=== PATIENT | female | born 1995 | race Caucasian/White ===

== ENCOUNTER 2017-01-12 01:04 | Inpatient (IN) | payer BC ==
[~2017-01-12] VITALS: Ht 157.5 cm; Wt 103.6 kg
[~2017-01-12 01:04] MED LIST: ALBU1AER9 INH; FLUO10CA24 PO; ONDA4TAB46 PO; PRT/40 PO; SENN-65 PO
[2017-01-12] MEDS ORDERED: SODIUM CHLORIDE 0.9% 1000ML 1,000 ML IV STA ×2 (01:28)
[2017-01-12] MEDS ORDERED: MoRPHine SULFATE 4 MG/ML 1 ML CARP\\VIAL IV STA (01:28)
[2017-01-12] MEDS ORDERED: ONDANSETRON INJ 2 MG/ML 2 ML VIAL IV STA (01:28)
[2017-01-12 01:46] LABS: HEMATOCRIT 42.8 % (37-47); MEAN CELL VOLUME 80.9 fL (80-100); MEAN CORPUSCULAR HGB CONC 34.6 g/dl (32-36); MEAN PLATELET VOLUME 9.6 fL (7.4-10.4); PLATELET COUNT 409 K/uL (130-400); RED BLOOD COUNT 5.29 M/uL (4.2-5.4); WHITE BLOOD COUNT 11.68 K/uL (4.8-10.8)
[2017-01-12] MEDS ORDERED: CHOL1000 PO (01:48)
[2017-01-12] MEDS ORDERED: ADVIN25/60 INH (01:48)
[2017-01-12 01:57] LABS: ALT/SGPT 28 U/L (12-78); AST/SGOT 8 U/L (15-37); BLOOD UREA NITROGEN 14 mg/dl (7-18); BUN/CREATININE RATIO 15.3 (10-20); CARBON DIOXIDE 25 mmol/L (21-32); CHLORIDE 108 mmol/L (98-107); CREATININE 0.93 mg/dl (0.60-1.20); GLUCOSE 103 mg/dl (70-99); POTASSIUM 3.8 mmol/L (3.5-5.1); SODIUM 143 mmol/L (136-145)
[2017-01-12 02:00] LABS: ALKALINE PHOSPHATASE 71 U/L (45-117)
[2017-01-12] MEDS ORDERED: HYDROmorphone INJ 1 MG/ML SYR IV STA (02:09)
[2017-01-12 02:19] LABS: BASO ABS # 0.11 K/uL (0-0.2); BASOPHIL % 0.9 %; COMPLETE YES; EOSINOPHIL % 1.8 %; LYMPH ABS # 1.95 K/uL (1.2-3.4); LYMPHOCYTE % 16.7 %; NEUTROPHILS % 61.3 %; VARIANT LYM ABS # 1.85 K/uL; VARIANT LYMPHOCYTE % 15.8 %
[2017-01-12 02:38] LABS: URINE APPEARANCE CLEAR (CLEAR); URINE BILIRUBIN NEG (NEG); URINE COLOR YELLOW; URINE EPITHELIAL CELL AUTO >30 /lpf (0-5); URINE NITRITE NEG (NEG); UROBILINOGEN NEG (NEG); ZZUR CULT IF INDIC CLEAN CATCH YES
[2017-01-12 02:40] LABS: PREG INTERNAL NEGATIVE QC NEG CLEAR BACKGROUND; PREG INTERNAL POSITIVE QC POS CONTROL LINE
[2017-01-12 02:47] LABS: MANUAL MICROSCOPIC REQUIRED? NO; REVIEW REQ? NO
[2017-01-12] MEDS ORDERED: CEFOXITIN SOD 2 GM VIAL IV STA (03:42)
--- NOTE | 2017-01-12 03:52 | EMERGENCY ROOM VISIT NOTE ---
History First contact with patient: 01:13 Chief Complaint: ABDOMINAL PAIN Stated Complaint: ABD PAIN Nursing Triage Summary: Patient reports right sided abdominal pain that began yesterday morning and got worse tonight. Patient also has been vomiting. Denies diarrhea. History of Present Illness The patient is a 21 year old female who presents to the Emergency Room with complaints of right upper abdominal pain for the past day described as aching, ranging in severity currently 8 out of 10. Nothing makes it better or worse. Patient has been vomiting. Patient denies chest pain, dyspnea, fever, chills, diarrhea, back pain. Review of Systems See HPI for pertinent positives & negatives. A total of 10 systems reviewed and were otherwise negative. Past Medical/Surgical History Medical Problems: (1) Headache Surgical Problems: (1) H/O adenoidectomy (2) [place] teeth extracted Family History Not obtainable due to adoption Social History Smoking Status: Never Smoker Alcohol Use: none Drug Use: none Marital Status: single Housing Status: lives with family Occupation Status: employed Current/Historical Medications Scheduled Cholecalciferol (Vitamin D3), Unknown Dose PO DAILY Fluticasone Prop/Salmeterol (Advair Diskus 250/50 60 Dose), 1 PUFF INH BID Pantoprazole (Pantoprazole Sodium), 40 MG PO DAILY Scheduled PRN Albuterol Sulfate (Proair Hfa), 2 PUFF INH Q4 PRN for SOB/Wheezing Allergies Coded Allergies: Clavulanic Acid (Unverified Allergy, Mild, Mild vomiting & NO RASH., ) Penicillins (Unverified Allergy, Mild, VOMITING, 08/20/15) Physical Exam Vital Signs Date Time Temp Pulse Resp B/P Pulse Ox O2 Delivery O2 Flow Rate FiO2 01/12/17 01:34 97 Room Air 01/12/17 01:09 37.0 84 22 141/87 99 Room Air Physical Exam VITALS: Vitals are noted on the nurse's note and reviewed by myself. Vital signs stable. GENERAL: White female in obvious pain, in no acute distress, nondiaphoretic, well-developed well-nourished. SKIN: The skin was without rashes, erythema, edema, or bruising. There is no tenting of the skin. Capillary reflex less than 2 seconds. HEAD: Normocephalic atraumatic. EARS: External auditory canals clear, tympanic membranes pearly [place]bot without erythema or effusion bilaterally. EYES: Pupils equal round and reactive to light and accommodation. Conjunctivae without injection, sclerae without icterus. Extraocular movements intact. NOSE: Patent, turbinates without inflammation or discharge. MOUTH: Mucous membranes moist. Pharynx without erythema or exudate. Uvula midline. Airway patent. Tongue does not deviate. NECK: Supple without nuchal rigidity. No lymphadenopathy. No thyromegaly. Cervical spine is nontender. No JVD. HEART: Regular rate and rhythm without murmurs gallops or rubs. LUNGS: Clear to auscultation bilaterally without wheezes, rales or rhonchi. No dullness to percussion. No retractions or accessory muscle use. ABDOMEN: Positive bowel sounds x 4. Normal tympanic percussion. Soft, protuberant, obese, tender to palpation right upper quadrant, no CVA tenderness , without masses or organomegaly. No guarding or rebound tenderness. MUSCULOSKELETAL: No muscle atrophy, erythema, or edema noted. NEURO: Patient was alert and oriented to person place and time. Normal sensation to light and sharp touch. No focal neurological deficits. Medical Decision & Procedures Laboratory Results 01/12/17 01:24 Red Blood Count 5.29, Mean Corpuscular Volume 80.9, Mean Corpuscular Hemoglobin 28.0, Mean Corpuscular Hemoglobin Concent 34.6, Mean Platelet Volume 9.6 01/12/17 01:24 Test 01/12/17 01:24 01/12/17 02:16 White Blood Count 11.68 K/uL (4.8-10.8) Red Blood Count 5.29 M/uL (4.2-5.4) Hemoglobin 14.8 g/dL (12.0-16.0) Hematocrit 42.8 % (37-47) Mean Corpuscular Volume 80.9 fL (80-100) Mean Corpuscular Hemoglobin 28.0 pg (25-34) Mean Corpuscular Hemoglobin Concent 34.6 g/dl (32-36) Platelet Count 409 K/uL (130-400) Mean Platelet Volume 9.6 fL (7.4-10.4) RDW Standard Deviation 37.3 fL (36.4-46.3) RDW Coefficient of Variation 12.7 % (11.5-14.5) Neutrophils % (Manual) 61.3 % Lymphocytes % (Manual) 16.7 % Variant Lymphocytes % (manual) 15.8 % Monocytes % (Manual) 3.5 % Eosinophils % (Manual) 1.8 % Basophils % (Manual) 0.9 % Neutrophils # (Manual) 7.16 K/uL (1.4-6.5) Total Absolute Neutrophils 7.16 K/uL (1.4-6.5) Lymphocytes # (Manual) 1.95 K/uL (1.2-3.4) Absolute Variant Lymphocytes 1.85 K/uL Total Absolute Lymphocytes 3.80 K/uL (1.2-3.4) Monocytes # (Manual) 0.41 K/uL (0.11-0.59) Eosinophils # (Manual) 0.21 K/uL (0-0.5) Basophils # (Manual) 0.11 K/uL (0-0.2) Anion Gap 10.0 mmol/L (3-11) Est Creatinine Clear Calc Drug Dose 107.1 ml/min Estimated GFR () 101.1 Estimated GFR (Non- 87.2 BUN/Creatinine Ratio 15.3 (10-20) Calcium Level 9.0 mg/dl (8.5-10.1) Total Bilirubin 0.2 mg/dl (0.2-1) Direct Bilirubin < 0.1 mg/dl (0-0.2) Aspartate Amino Transf (AST/SGOT) 8 U/L (15-37) Alanine Aminotransferase (ALT/SGPT) 28 U/L (12-78) Alkaline Phosphatase 71 U/L (45-117) Total Protein 8.3 gm/dl (6.4-8.2) Albumin 4.1 gm/dl (3.4-5.0) Lipase 193 U/L (73-393) Human Chorionic Gonadotropin, Qual NEG (NEG) Urine Color YELLOW Urine Appearance CLEAR (CLEAR) Urine pH 7.0 (4.5-7.5) Urine Specific [place] 1.020 (1.000-1.030) Urine Protein NEG (NEG) Urine Glucose (UA) NEG (NEG) Urine Ketones NEG (NEG) Urine Occult Blood 1+ (NEG) Urine Nitrite NEG (NEG) Urine Bilirubin NEG (NEG) Urine Urobilinogen NEG (NEG) Urine Leukocyte Esterase NEG (NEG) Urine WBC (Auto) 1-5 /hpf (0-5) Urine RBC (Auto) 0-4 /hpf (0-4) Urine Hyaline Casts (Auto) 0 /lpf (0-5) Urine Epithelial Cells (Auto) >30 /lpf (0-5) Urine Bacteria (Auto) 1+ (NEG) Medications Administered Medications (Trade) Dose Ordered Sig/Saud Route Start Time Stop Time Status Last Admin Dose Admin Morphine Sulfate (MoRPHine SULFATE INJ) 4 mg NOW STAT IV 01/12/17 01:28 01/12/17 01:32 DC 01/12/17 01:45 4 MG Ondansetron HCl 4 mg 4 mg NOW STAT IV 01/12/17 01:28 01/12/17 01:32 DC 01/12/17 01:46 4 MG Sodium Chloride 1,000 ml @ 999 mls/hr Q1H1M STAT IV 01/12/17 01:28 01/12/17 02:28 DC 01/12/17 01:46 999 MLS/HR Sodium Chloride (Nss 1000ml) 1,000 ml @ 200 mls/hr Q5H STAT IV 01/12/17 01:28 01/12/17 06:27 01/12/17 02:14 200 MLS/HR Hydromorphone HCl (Dilaudid Inj) 1 mg NOW STAT IV 01/12/17 02:09 01/12/17 02:10 DC 01/12/17 02:14 1 MG ED Course Prior records/ancillary studies reviewed. Triage Nursing notes reviewed. Additional history obtained from family. The patient's history was concerning for abdominal pain. Differential diagnosis: Etiologies such as appendicitis, diverticulitis, PUD, biliary pathology, UTI, pancreatitis, obstruction, mesenteric ischemia, aortic pathology, infections, inflammatory bowel disease, renal colic, as well as others were entertained. Physical examination findings: As above. ER treatment provided: Morphine, Zofran, Mefoxin On reassessment the patient felt better. Diagnostics interpreted by me: The labs revealed leukocytosis. No worrisome electrolyte abnormality Imaging studies: Ultrasound was concerning for acute cholecystitis per stat radiology Consultation: A consultation was placed with the surgeon, Dr. Vickers. The case was discussed and diagnostics were reviewed. The patient was evaluated in the ER for further treatment. Exam and history seem consistent with acute cholecystitis. Patient was admitted to surgical service. She was started on antibiotics. Please see his dictation for further admission regarding his treatment plan. By the evaluation outlined above emergent etiologies such as appendicitis, diverticulitis, PUD, UTI, pancreatitis, obstruction, mesenteric ischemia, aortic pathology, inflammatory bowel disease, renal colic, as well as others were deemed relatively unlikely. The pt informed about the findings as listed above. All questions were answered and pleased with the treatment. Case reviewed with my attending Medical Decision As above Impression Primary Impression: Acute cholecystitis Departure Information Dispostion Being Evaluated By Surgeon Condition FAIR Referrals Sharon Cooper DO (PCP) Patient Instructions My [facility]
[2017-01-12] MEDS ORDERED: METOCLOPRAMIDE HCL INJ 5 MG/ML 2 ML VIAL IV STA (04:01)
[2017-01-12] MEDS ORDERED: DiphenhydrAMINE HCL 50 MG/ML VIAL IV STA (04:01)
--- NOTE | 2017-01-12 04:40 | History and Physical ---
History & Physical Date & Time of Service: Jan 12, 2017 at 04:31 Chief Complaint: Abd Pain Primary Care Physician: Sharon Cooper DO History of Present Illness Source: patient, parent he patient is a 21 year old female who presents to the Emergency Room with complaints of right upper abdominal pain for the past day described as aching, ranging in severity currently 8 out of 10. Nothing makes it better or worse. Patient has been vomiting. Patient denies chest pain, dyspnea, fever, chills, diarrhea, back pain.now pt is still have RUQ pain, 8/10. Past Medical/Surgical History Medical Problems: (1) Headache Status: Chronic Surgical Problems: (1) H/O adenoidectomy Status: Resolved (2) [place] teeth extracted Status: Resolved Family History Not obtainable due to adoption Social History Smoking Status: Never Smoker Alcohol Use: none Drug Use: none Marital Status: single Housing status: lives with family Occupational Status: employed Multi-Drug Resistant Organisms History of MDRO: No Allergies Coded Allergies: Clavulanic Acid (Unverified Allergy, Mild, Mild vomiting & NO RASH., ) Penicillins (Unverified Allergy, Mild, VOMITING, 08/20/15) Home Medications Scheduled Cholecalciferol (Vitamin D3), Unknown Dose PO DAILY Fluticasone Prop/Salmeterol (Advair Diskus 250/50 60 Dose), 1 PUFF INH BID Pantoprazole (Pantoprazole Sodium), 40 MG PO DAILY Scheduled PRN Albuterol Sulfate (Proair Hfa), 2 PUFF INH Q4 PRN for SOB/Wheezing Review of Systems Constitutional: No chills, No fatigue, No fever, No problem reported, No sweats , No weakness, No weight loss Eyes: No diplopia, No discharge, No eye pain, No problem reported, No redness, No worsening of vision ENT: No dental problems, No hearing loss, No nasal symptoms, No problem reported, No sore throat, No tinnitus, No trouble swallowing, No unusual epistaxis Respiratory: No cough, No dyspnea at rest, No dyspnea on exertion, No hemoptysis, No problem reported, No shortness of breath, No sputum, No wheezing Cardiovascular: No PND, No chest pain, No claudication, No edema, No orthopnea , No palpitations, No problem reported Abdomen: + nausea, + pain, + vomiting Musculoskeletal: No calf pain, No joint pain, No muscle pain, No problem reported, No swelling Genitourinary - Female: No dysmenorrhea, No dysuria, No hematuria, No menorrhagia, No metrorrhagia, No , No problem reported, No rash, No urinary frequency, No urinary incontinence, No urinary retention, No urinary urgency, No vaginal bleeding, No vaginal discharge, No vaginal itching, No vulvodynia Neurologic: No balance problems, No memory loss, No numbness/tingling, No paralysis, No problem reported, No vertigo, No weakness Psychiatric: No anhedonism, No anxiety, No depression symptoms, No insomnia, No problem reported, No substance abuse Endocrine: No excessive thirst, No excessive urination, No fatigue, No problem reported Hematologic / Lymphatic: No abnormal bleeding/bruising, No clotting problems, No night sweats, No problem reported, No swollen lymph nodes Physical Exam Vital Signs Date Time Temp Pulse Resp B/P Pulse Ox O2 Delivery O2 Flow Rate FiO2 01/12/17 01:34 97 Room Air 01/12/17 01:09 37.0 84 22 141/87 99 Room Air General Appearance: WD/WN, + mild distress Head: normocephalic, atraumatic Eyes: normal inspection ENT: normal ENT inspection Neck: supple, no JVD Respiratory/Chest: chest non-tender, lungs clear Cardiovascular: regular rate, rhythm, no edema, no JVD Abdomen/GI: normal bowel sounds, non tender, soft, + tenderness Extremities/Musculoskelatal: normal inspection, no calf tenderness, normal capillary refill 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, no motor/sensory deficits Skin: normal color, warm/dry, no rash Lymphatic: no adenopathy tenderness at RUQ, no rebound pain, Diagnostics Laboratory Results Results Past 24 Hours Test 01/12/17 01:24 01/12/17 02:16 Range/Units White Blood Count 11.68 4.8-10.8 K/uL Red Blood Count 5.29 4.2-5.4 M/uL Hemoglobin 14.8 12.0-16.0 g/dL Hematocrit 42.8 37-47 % Mean Corpuscular Volume 80.9 80-100 fL Mean Corpuscular Hemoglobin 28.0 25-34 pg Mean Corpuscular Hemoglobin Concent 34.6 32-36 g/dl Platelet Count 409 130-400 K/uL Mean Platelet Volume 9.6 7.4-10.4 fL RDW Standard Deviation 37.3 36.4-46.3 fL RDW Coefficient of Variation 12.7 11.5-14.5 % Neutrophils % (Manual) 61.3 % Lymphocytes % (Manual) 16.7 % Variant Lymphocytes % (manual) 15.8 % Monocytes % (Manual) 3.5 % Eosinophils % (Manual) 1.8 % Basophils % (Manual) 0.9 % Neutrophils # (Manual) 7.16 1.4-6.5 K/uL Total Absolute Neutrophils 7.16 1.4-6.5 K/uL Lymphocytes # (Manual) 1.95 1.2-3.4 K/uL Absolute Variant Lymphocytes 1.85 K/uL Total Absolute Lymphocytes 3.80 1.2-3.4 K/uL Monocytes # (Manual) 0.41 0.11-0.59 K/uL Eosinophils # (Manual) 0.21 0-0.5 K/uL Basophils # (Manual) 0.11 0-0.2 K/uL Sodium Level 143 136-145 mmol/L Potassium Level 3.8 3.5-5.1 mmol/L Chloride Level 108 98-107 mmol/L Carbon Dioxide Level 25 21-32 mmol/L Anion Gap 10.0 3-11 mmol/L Blood Urea Nitrogen 14 7-18 mg/dl Creatinine 0.93 0.60-1.20 mg/dl Est Creatinine Clear Calc Drug Dose 107.1 ml/min Estimated GFR () 101.1 Estimated GFR (Non- 87.2 BUN/Creatinine Ratio 15.3 10-20 Random Glucose 103 70-99 mg/dl Calcium Level 9.0 8.5-10.1 mg/dl Total Bilirubin 0.2 0.2-1 mg/dl Direct Bilirubin < 0.1 0-0.2 mg/dl Aspartate Amino Transf (AST/SGOT) 8 15-37 U/L Alanine Aminotransferase (ALT/SGPT) 28 12-78 U/L Alkaline Phosphatase 71 45-117 U/L Total Protein 8.3 6.4-8.2 gm/dl Albumin 4.1 3.4-5.0 gm/dl Lipase 193 73-393 U/L Human Chorionic Gonadotropin, Qual NEG NEG Urine Color YELLOW Urine Appearance CLEAR CLEAR Urine pH 7.0 4.5-7.5 Urine Specific [place] 1.020 1.000-1.030 Urine Protein NEG NEG Urine Glucose (UA) NEG NEG Urine Ketones NEG NEG Urine Occult Blood 1+ NEG Urine Nitrite NEG NEG Urine Bilirubin NEG NEG Urine Urobilinogen NEG NEG Urine Leukocyte Esterase NEG NEG Urine WBC (Auto) 1-5 0-5 /hpf Urine RBC (Auto) 0-4 0-4 /hpf Urine Hyaline Casts (Auto) 0 0-5 /lpf Urine Epithelial Cells (Auto) >30 0-5 /lpf Urine Bacteria (Auto) 1+ NEG Microbiology Results 01/12/17 Urine Culture, Received Pending Diagnostic Radiology U/S acute cholecystitis, cholelithiasis Impression Assessment and Plan IMP acute cholecystitis cholelithiasis plan: admit to hospital IV fluid, antibiotic, control pain, pt will have laparoscopic cholecystectomy, possible open or cholangiography on Sunday or Sunday, D/W benefits, risks and alternatives of the procedure, pt understood, she agrees with the plan. ASA Classification: ASA Class I Level of Care Med/Surg VTE Prophylaxis Risk Level: Low Given or contraindicated: SCD's Note Total Time: Critical Care 30 - 74 minutes
[2017-01-12] MEDS ORDERED: METRONIDAZOLE / NSS 500 MG in PREMIXED NSS 0 ML IV SCH (06:00)
[2017-01-12 06:32] VITALS: BP 136/87; PULSE 68; TEMP 36.5; O2SAT 96; Ht 157.5 cm; Wt 103.6 kg
[2017-01-12 07:30] VITALS: O2SAT 96
--- NOTE | 2017-01-12 07:45 | DIAGNOSTIC IMAGING REPORT ---
ABDOMINAL ULTRASOUND, RIGHT UPPER QUADRANT HISTORY: Right upper quadrant abdominal pain.. COMPARISON: CT of the abdomen and pelvis November 08, 2014 and right upper quadrant ultrasound August 20, 2015. FINDINGS: Liver morphology is normal. There is no biliary ductal dilatation. Several gallstones are noted, including stones within the gallbladder neck. A sonographic Christianson sign was reported by the technologist. There was no gallbladder wall thickening or pericholecystic fluid. Gallbladder sludge was noted. Pancreas was obscured by overlying bowel gas. There was no right hydronephrosis. IMPRESSION: 1. Cholelithiasis and gallbladder sludge. No gallbladder wall thickening or pericholecystic fluid. Positive sonographic Christianson's sign. The findings could be seen in the setting of acute cholecystitis and a hepatobiliary scan could be obtained. 2. No biliary ductal dilatation. 3. Obscured pancreas. Electronically signed by: Javan Avery M.D. 01/12/2017 7:44 AM Dictated Date/Time: 01/12/2017 7:41 AM
[2017-01-12] MEDS: D5W AND 1/2NSS + 20MEQ KCL 1,000 ML IV SCH ×2 (08:12→17:26)
[2017-01-12] MEDS: METRONIDAZOLE / NSS 500 MG in PREMIXED NSS 100 ML IV SCH ×3 (08:21→23:29)
[2017-01-12] MEDS: ONDANSETRON INJ 2 MG/ML 2 ML VIAL IV PRN (08:35)
[2017-01-12] MEDS: CIPROFLOXACIN / D5W 400 MG in PREMIXED IN D5W 200 ML IV SCH ×2 (09:52→20:42)
--- NOTE | 2017-01-12 11:35 | Surgery Progress Note ---
Surgery Progress Note Date of Service Jan 12, 2017. Subjective + feeling well pt feels better, some RUQ pain, no N/V. Objective Vital Signs: Date Time Temp Pulse Resp B/P Pulse Ox O2 Delivery O2 Flow Rate FiO2 01/12/17 07:30 96 Room Air 01/12/17 06:32 36.5 68 14 136/87 96 Room Air 01/12/17 06:19 70 20 147/68 92 01/12/17 04:54 82 20 130/90 97 Room Air 01/12/17 01:34 97 Room Air 01/12/17 01:09 37.0 84 22 141/87 99 Room Air General Appearance: WD/WN Head: normocephalic Neck: supple Respiratory/Chest: chest non-tender, lungs clear Cardiovascular: regular rate, rhythm, no edema, no gallop, no JVD Abdomen: normal bowel sounds, non distended, soft, + tenderness Extremities: normal range of motion, non-tender, normal inspection Laboratory Results: Results Past 24 Hours Test 01/12/17 01:24 01/12/17 02:16 Range/Units White Blood Count 11.68 4.8-10.8 K/uL Red Blood Count 5.29 4.2-5.4 M/uL Hemoglobin 14.8 12.0-16.0 g/dL Hematocrit 42.8 37-47 % Mean Corpuscular Volume 80.9 80-100 fL Mean Corpuscular Hemoglobin 28.0 25-34 pg Mean Corpuscular Hemoglobin Concent 34.6 32-36 g/dl Platelet Count 409 130-400 K/uL Mean Platelet Volume 9.6 7.4-10.4 fL RDW Standard Deviation 37.3 36.4-46.3 fL RDW Coefficient of Variation 12.7 11.5-14.5 % Neutrophils % (Manual) 61.3 % Lymphocytes % (Manual) 16.7 % Variant Lymphocytes % (manual) 15.8 % Monocytes % (Manual) 3.5 % Eosinophils % (Manual) 1.8 % Basophils % (Manual) 0.9 % Neutrophils # (Manual) 7.16 1.4-6.5 K/uL Total Absolute Neutrophils 7.16 1.4-6.5 K/uL Lymphocytes # (Manual) 1.95 1.2-3.4 K/uL Absolute Variant Lymphocytes 1.85 K/uL Total Absolute Lymphocytes 3.80 1.2-3.4 K/uL Monocytes # (Manual) 0.41 0.11-0.59 K/uL Eosinophils # (Manual) 0.21 0-0.5 K/uL Basophils # (Manual) 0.11 0-0.2 K/uL Sodium Level 143 136-145 mmol/L Potassium Level 3.8 3.5-5.1 mmol/L Chloride Level 108 98-107 mmol/L Carbon Dioxide Level 25 21-32 mmol/L Anion Gap 10.0 3-11 mmol/L Blood Urea Nitrogen 14 7-18 mg/dl Creatinine 0.93 0.60-1.20 mg/dl Est Creatinine Clear Calc Drug Dose 107.1 ml/min Estimated GFR () 101.1 Estimated GFR (Non- 87.2 BUN/Creatinine Ratio 15.3 10-20 Random Glucose 103 70-99 mg/dl Calcium Level 9.0 8.5-10.1 mg/dl Total Bilirubin 0.2 0.2-1 mg/dl Direct Bilirubin < 0.1 0-0.2 mg/dl Aspartate Amino Transf (AST/SGOT) 8 15-37 U/L Alanine Aminotransferase (ALT/SGPT) 28 12-78 U/L Alkaline Phosphatase 71 45-117 U/L Total Protein 8.3 6.4-8.2 gm/dl Albumin 4.1 3.4-5.0 gm/dl Lipase 193 73-393 U/L Human Chorionic Gonadotropin, Qual NEG NEG Urine Color YELLOW Urine Appearance CLEAR CLEAR Urine pH 7.0 4.5-7.5 Urine Specific [place] 1.020 1.000-1.030 Urine Protein NEG NEG Urine Glucose (UA) NEG NEG Urine Ketones NEG NEG Urine Occult Blood 1+ NEG Urine Nitrite NEG NEG Urine Bilirubin NEG NEG Urine Urobilinogen NEG NEG Urine Leukocyte Esterase NEG NEG Urine WBC (Auto) 1-5 0-5 /hpf Urine RBC (Auto) 0-4 0-4 /hpf Urine Hyaline Casts (Auto) 0 0-5 /lpf Urine Epithelial Cells (Auto) >30 0-5 /lpf Urine Bacteria (Auto) 1+ NEG Microbiology Results 01/12/17 Urine Culture, Received Pending Assessment & Plan IMP acute cholecystitis, cholelithiasis continue treatment OOB repeat labs in am contracts representative surgeon will 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 full liquids
[2017-01-12 15:15] VITALS: BP 121/79; PULSE 72; TEMP 36.6; O2SAT 96
[2017-01-12] MEDS: HYDROmorphone INJ 1 MG/ML SYR IV PRN (20:39)
[2017-01-12] MEDS: DOCUSATE SODIUM 100 MG CAP PO SCH (20:41)
[2017-01-12 23:19] VITALS: BP 124/82; PULSE 82; TEMP 36.7; O2SAT 98
[2017-01-12] MEDS: OXYCODONE/ACETAMINOPHEN 5-325 TAB PO PRN (23:35)
[2017-01-13] MEDS: D5W AND 1/2NSS + 20MEQ KCL 1,000 ML IV SCH ×3 (03:58→23:44)
[2017-01-13] MEDS: ONDANSETRON INJ 2 MG/ML 2 ML VIAL IV PRN ×4 (04:03→23:44)
[2017-01-13] MEDS: HYDROmorphone INJ 1 MG/ML SYR IV PRN ×4 (04:04→23:45)
[2017-01-13 07:20] VITALS: BP 120/82; PULSE 61; TEMP 36.4; O2SAT 96
[2017-01-13 07:21] LABS: BASO % 0.5 %; BASO ABS # 0.03 K/uL (0-0.2); COMPLETE YES; EOS % 2.9 %; HEMATOCRIT 39.7 % (37-47); IG% 0.2 %; LYMPH % 49.6 %; LYMPH ABS # 3.23 K/uL (1.2-3.4); MEAN CELL VOLUME 82.5 fL (80-100); MEAN CORPUSCULAR HEMOGLOBIN 28.1 pg (25-34); MEAN PLATELET VOLUME 9.3 fL (7.4-10.4); MONO % 7.1 %; NEUT % 39.7 %; PLATELET COUNT 330 K/uL (130-400); RED BLOOD COUNT 4.81 M/uL (4.2-5.4); WHITE BLOOD COUNT 6.51 K/uL (4.8-10.8)
[2017-01-13 08:08] LABS: ALB/GLOB RATIO 0.9 (0.9-2); BUN/CREATININE RATIO 10.1 (10-20); CALCIUM 8.1 mg/dl (8.5-10.1); CREATININE 0.82 mg/dl (0.60-1.20); POTASSIUM 3.8 mmol/L (3.5-5.1)
[2017-01-13] MEDS: DOCUSATE SODIUM 100 MG CAP PO SCH ×2 (08:08→20:59)
[2017-01-13] MEDS: CIPROFLOXACIN / D5W 400 MG in PREMIXED IN D5W 200 ML IV SCH ×2 (09:00→21:00)
--- NOTE | 2017-01-13 10:34 | Surgery Progress Note ---
Surgery Progress Note Date of Service Jan 13, 2017. Subjective still having some pain but overall improved. no new complaints. Objective Vital Signs: Date Time Temp Pulse Resp B/P Pulse Ox O2 Delivery O2 Flow Rate FiO2 01/13/17 08:10 Room Air 01/13/17 07:20 36.4 61 17 120/82 96 Room Air 01/12/17 23:19 36.7 82 16 124/82 98 Room Air 01/12/17 20:35 Room Air 01/12/17 15:15 36.6 72 16 121/79 96 Room Air General Appearance: no apparent distress Head: normocephalic Neck: supple Respiratory/Chest: chest non-tender, no accessory muscle use Cardiovascular: no edema Abdomen: soft, + tenderness Extremities: normal range of motion, non-tender Laboratory Results: Results Past 24 Hours Test 01/13/17 06:45 Range/Units White Blood Count 6.51 4.8-10.8 K/uL Red Blood Count 4.81 4.2-5.4 M/uL Hemoglobin 13.5 12.0-16.0 g/dL Hematocrit 39.7 37-47 % Mean Corpuscular Volume 82.5 80-100 fL Mean Corpuscular Hemoglobin 28.1 25-34 pg Mean Corpuscular Hemoglobin Concent 34.0 32-36 g/dl Platelet Count 330 130-400 K/uL Mean Platelet Volume 9.3 7.4-10.4 fL Neutrophils (%) (Auto) 39.7 % Lymphocytes (%) (Auto) 49.6 % Monocytes (%) (Auto) 7.1 % Eosinophils (%) (Auto) 2.9 % Basophils (%) (Auto) 0.5 % Neutrophils # (Auto) 2.59 1.4-6.5 K/uL Lymphocytes # (Auto) 3.23 1.2-3.4 K/uL Monocytes # (Auto) 0.46 0.11-0.59 K/uL Eosinophils # (Auto) 0.19 0-0.5 K/uL Basophils # (Auto) 0.03 0-0.2 K/uL RDW Standard Deviation 38.7 36.4-46.3 fL RDW Coefficient of Variation 12.8 11.5-14.5 % Immature Granulocyte % (Auto) 0.2 % Immature Granulocyte # (Auto) 0.01 0.00-0.02 K/uL Sodium Level 141 136-145 mmol/L Potassium Level 3.8 3.5-5.1 mmol/L Chloride Level 106 98-107 mmol/L Carbon Dioxide Level 27 21-32 mmol/L Anion Gap 8.0 3-11 mmol/L Blood Urea Nitrogen 8 7-18 mg/dl Creatinine 0.82 0.60-1.20 mg/dl Est Creatinine Clear Calc Drug Dose 121.5 ml/min Estimated GFR () 117.7 Estimated GFR (Non- 101.6 BUN/Creatinine Ratio 10.1 10-20 Random Glucose 93 70-99 mg/dl Calcium Level 8.1 8.5-10.1 mg/dl Total Bilirubin 0.5 0.2-1 mg/dl Aspartate Amino Transf (AST/SGOT) 15 15-37 U/L Alanine Aminotransferase (ALT/SGPT) 31 12-78 U/L Alkaline Phosphatase 59 45-117 U/L Total Protein 7.1 6.4-8.2 gm/dl Albumin 3.3 3.4-5.0 gm/dl Globulin 3.8 2.5-4.0 gm/dl Albumin/Globulin Ratio 0.9 0.9-2 Lipase 130 73-393 U/L Assessment & Plan clinically improving per Dr. Rancho lindsey early this week continue current care.
[2017-01-13] MEDS: OXYCODONE/ACETAMINOPHEN 5-325 TAB PO PRN ×2 (13:49→20:59)
[2017-01-13 14:59] VITALS: BP 115/78; PULSE 70; TEMP 36.5; O2SAT 97
[2017-01-13 21:35] VITALS: BP 153/68; PULSE 83
[2017-01-13 23:08] VITALS: BP 117/77; PULSE 72; TEMP 36.4; O2SAT 94
[2017-01-14] MEDS: OXYCODONE/ACETAMINOPHEN 5-325 TAB PO PRN ×2 (05:03→11:22)
[2017-01-14 07:15] VITALS: BP 111/76; PULSE 58; TEMP 36.8; O2SAT 97
[2017-01-14] MEDS: HYDROmorphone INJ 1 MG/ML SYR IV PRN ×5 (07:49→21:41)
[2017-01-14] MEDS: ONDANSETRON INJ 2 MG/ML 2 ML VIAL IV PRN ×4 (07:53→21:41)
[2017-01-14] MEDS: DOCUSATE SODIUM 100 MG CAP PO SCH ×2 (08:48→20:49)
[2017-01-14] MEDS: D5W AND 1/2NSS + 20MEQ KCL 1,000 ML IV SCH ×2 (08:49→18:28)
--- NOTE | 2017-01-14 09:03 | Surgery Progress Note ---
Surgery Progress Note Date of Service Jan 14, 2017. Subjective pt resting comfortably ( sleeping...I did not wake her) Objective Vital Signs: Date Time Temp Pulse Resp B/P Pulse Ox O2 Delivery O2 Flow Rate FiO2 01/14/17 07:15 36.8 58 19 111/76 97 Room Air 01/13/17 23:40 Room Air 01/13/17 23:08 36.4 72 16 117/77 94 Room Air 01/13/17 21:35 83 153/68 01/13/17 16:00 Room Air 01/13/17 14:59 36.5 70 16 115/78 97 Room Air General Appearance: no apparent distress Head: normocephalic Neck: no JVD Respiratory/Chest: no respiratory distress, no accessory muscle use Abdomen: non distended Extremities: no pedal edema Assessment & Plan 12/14/16 will d/w Dr. Vickers regarding timing of lap césar no acute changes labs reviewed. 12/13/[address] Vickers plans lap césar early this week continue current care. clinically improving per Dr. Vickers plans lap césar early this week continue current care.
[2017-01-14 15:23] VITALS: BP 119/76; PULSE 55; TEMP 36.6; O2SAT 98
[2017-01-14 23:05] VITALS: BP 140/83; PULSE 62; TEMP 36.8; O2SAT 96
[2017-01-15] MEDS: HYDROmorphone INJ 1 MG/ML SYR IV PRN ×7 (01:01→23:55)
[2017-01-15] MEDS: ONDANSETRON INJ 2 MG/ML 2 ML VIAL IV PRN ×3 (04:05→20:12)
[2017-01-15] MEDS: D5W AND 1/2NSS + 20MEQ KCL 1,000 ML IV SCH ×3 (04:06→23:48)
[2017-01-15 07:19] VITALS: BP 112/68; PULSE 57; TEMP 36.6; O2SAT 92
--- NOTE | 2017-01-15 07:39 | Surgery Progress Note ---
Surgery Progress Note Date of Service Jan 15, 2017. Subjective + feeling well pt is doing better, less abdominal pain, no nausea, no vomiting, Objective Vital Signs: Date Time Temp Pulse Resp B/P Pulse Ox O2 Delivery O2 Flow Rate FiO2 01/15/17 07:19 36.6 57 18 112/68 92 Room Air 01/14/17 23:15 Room Air 01/14/17 23:05 36.8 62 16 140/83 96 Room Air 01/14/17 15:40 Room Air 01/14/17 15:23 36.6 55 18 119/76 98 Room Air 01/14/17 07:40 Room Air General Appearance: WD/WN Head: normocephalic Neck: supple Respiratory/Chest: chest non-tender, lungs clear Cardiovascular: regular rate, rhythm, no edema, no gallop, no JVD Abdomen: normal bowel sounds, non tender, non distended, soft Extremities: normal range of motion, non-tender, normal inspection Assessment & Plan IMP acute cholecystitis, cholelithiasis continue treatment OOB repeat labs in am NPO fron mn OOB pt will have laparoscopic cholecystectomy on 01/07/2017 , D/W benefits, risks and alternatives of the procedure, the risks- infection, bleeding, may need ERCP , injury CBD, bowel , incisional hernia, , pt understood, she agrees with the plan, I answered all questions, IMP acute cholecystitis, cholelithiasis continue treatment OOB repeat labs in am 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
[2017-01-15] MEDS: OXYCODONE/ACETAMINOPHEN 5-325 TAB PO PRN (08:05)
[2017-01-15] MEDS: DOCUSATE SODIUM 100 MG CAP PO SCH ×2 (08:06→21:42)
[2017-01-15 15:12] VITALS: BP 117/80; PULSE 66; TEMP 36.7; O2SAT 91
[2017-01-15 23:43] VITALS: BP 121/82; PULSE 66; TEMP 36.9; O2SAT 99
[2017-01-16] VITALS (7 sets, daily range): BP systolic 120–157; BP diastolic 82–102; PULSE 66–103; TEMP 36.4–37.2; O2SAT 91–100
[2017-01-16] MEDS ORDERED: PROPOFOL IV EMULSION 10 MG/ML 20 ML VIAL IV ONE (06:19)
[2017-01-16] MEDS ORDERED: ONDANSETRON INJ 2 MG/ML 2 ML VIAL ONE (06:19)
[2017-01-16] MEDS ORDERED: FENTANYL CITRATE INJ 50 MCG/1 ML 2 ML VIAL ONE ×2 (06:19→08:37)
[2017-01-16] MEDS ORDERED: ROCURONIUM BROMIDE 10 MG/ML 5 ML VIAL ONE ×2 (06:19→08:03)
[2017-01-16] MEDS ORDERED: DEXAMETHASONE SOD INJ 4 MG/ML VIAL ONE (06:19)
[2017-01-16] MEDS ORDERED: LIDOCAINE HCL 2% 2 ML VIAL (20MG/ML) ONE (06:19)
[2017-01-16] MEDS ORDERED: MIDAZOLAM HCL 1 MG/ML 2ML VIAL ONE (06:19)
[2017-01-16] MEDS ORDERED: CLINDAMYCIN 600 MG/54 ML D5W IV ONE (06:49)
--- NOTE | 2017-01-16 06:49 | History & Physical Bridge Note ---
H&P Re-Evaluation Bridge Note: I have examined the patient, reviewed the History & Physical and in the interval since the performance of the History & Physical I have noted the following changes of clinical significance: No changes noted
[2017-01-16] MEDS ORDERED: CLINDAMYCIN PHOS 150 MG/ML 2 ML VIAL ONE (06:51)
[2017-01-16] MEDS ORDERED: BUPIVACAINE 0.5 % 5 MG/1 ML MPF 30ML VIAL ONE (06:57)
[2017-01-16] MEDS ORDERED: BACITRACIN OINT 15 GM TUBE ONE (06:57)
[2017-01-16] MEDS ORDERED: LIDOCAINE HCL 1% 20 ML VIAL ONE (06:57)
[2017-01-16] MEDS ORDERED: ATROPINE SULFATE 0.1 MG/ML 5ML SYR IV PRN (07:30)
[2017-01-16] MEDS ORDERED: EpHEDrine SULFATE INJ 50 MG/ML AMP IV PRN (07:30)
[2017-01-16] MEDS ORDERED: PROMETHAZINE HCL INJ 6.25 MG in SODIUM CHLORIDE 0.9% 50ML 50 ML IV PRN (07:30)
[2017-01-16] MEDS ORDERED: HYDROmorphone INJ 1 MG/ML SYR IV PRN (07:30)
[2017-01-16] MEDS ORDERED: ONDANSETRON INJ 2 MG/ML 2 ML VIAL IV PRN (07:30)
[2017-01-16] MEDS ORDERED: FENTANYL CITRATE INJ 50 MCG/1 ML 2 ML VIAL IV PRN (07:30)
[2017-01-16] MEDS ORDERED: MoRPHine SULFATE 2 MG/ML CARP ONE ×2 (07:34)
[2017-01-16] MEDS ORDERED: NEOSTIGMINE METHYLSULFATE 5 MG/5 ML SYR ONE (08:36)
[2017-01-16] MEDS ORDERED: KETOROLAC TROMETHAMINE 30 MG/ML VIAL ONE (08:36)
[2017-01-16] MEDS ORDERED: GLYCOPYRROLATE INJ 0.2 MG/ML VIAL ONE (08:36)
[2017-01-16] MEDS: DOCUSATE SODIUM 100 MG CAP PO SCH (08:58)
--- NOTE | 2017-01-16 09:19 | [facility] Post Operative Brief Note ---
Immediate Operative Summary Operative Date Jan 16, 2017. Pre-Operative Diagnosis Acute Cholecystitis Cholelithasis Post-Operative Diagnosis Acute Cholecystitis Cholelithasis Procedure(s) Performed Laparoscopic Cholecystectomy, No Cholangiogram Surgeon Dr. Vickers Chemist Assistant Surgeon(s) surgical services coordinator Estimated Blood Loss 20ML Findings acute cholecystitis Fluids (cc crystalloids) 800ml Specimens Specimen A. Gallbladder Drains none Anesthesia general Disposition Recovery Room / PACU
--- NOTE | 2017-01-16 09:27 | Discharge Instructions ---
Discharge Instructions Admission Reason for Admission: Acute Cholecystitis Discharge Discharge Diagnosis / Problem: S/P laparoscopic cholescytectomy Discharge Goals Goal(s): Decrease discomfort, Improve function Activity Recommendations Activity Limitations: per Instructions/Follow-up section Lifting Limitations: no more than 25 pounds Exercise/Sports Limitations: gradually increase as tolerated May Resume Sexual Activity: when tolerated Shower/Bathe: no limitations Driving or Machine Use: resume 3 days after discharge . Instructions / Follow-Up Instructions / Follow-Up keep the dressing for 4 days, she can take a shower on 01/20/2017. no driving while taking pain medicine. Follow up 1 week. Current Hospital Diet Patient's current hospital diet: Full Liquid Diet Discharge Diet Recommended Diet: Regular Diet Procedures Procedures Performed: Laparoscopic Cholecystectomy, No Cholangiogram Pending Studies Studies pending at discharge: no Medical Emergencies . Who to Call and When: Medical Emergencies: If at any time you feel your situation is an emergency, please call 911 immediately. . Non-Emergent Contact Non-Emergency issues call your: Primary Care Provider Call Non-Emergent contact if: you have a fever, temperature is above 100.5, your pain is not controlled, your pain is worsening, wound has increased drainage, wound has increased redness . "Provider Documentation" section prepared by Stef Vickers. VTE Core Measure Inpt VTE Proph given/why not?: SCD's
[2017-01-16] MEDS ORDERED: OXYC-57 PO (09:30)
[2017-01-16] MEDS ORDERED: OXYCODONE/ACETAMINOPHEN 5-325 TAB PO PRN (09:30)
[2017-01-16] MEDS ORDERED: D5W AND 1/2NSS + 20MEQ KCL 1,000 ML IV SCH (09:30)
--- NOTE | 2017-01-16 09:53 | Anesthesiology Progress Note ---
Anesthesia Post Op Note Date & Time Jan 16, 2017 at 09:53 Vital Signs Pain Intensity: 3 Vital Signs Past 12 Hours Date Time Temp Pulse Resp B/P Pulse Ox O2 Delivery O2 Flow Rate FiO2 01/16/17 09:45 36.6 94 12 159/96 100 Nasal Cannula 4 01/16/17 09:35 93 12 132/95 100 Nasal Cannula 4 01/16/17 09:25 86 12 141/95 100 Mask 10 01/16/17 09:15 101 12 130/82 100 Mask 10 01/16/17 09:07 37.6 86 12 135/87 98 Mask 10 01/16/17 06:03 36.4 66 18 141/85 96 Room Air 01/15/17 23:45 Room Air 01/15/17 23:43 36.9 66 14 121/82 99 Room Air Notes Mental Status: alert / awake / arousable, participated in evaluation Pt Amnestic to Procedure: Yes Nausea / Vomiting: adequately controlled Pain: adequately controlled Airway Patency, RR, SpO2: stable & adequate BP & HR: stable & adequate Hydration State: stable & adequate Anesthetic Complications: no major complications apparent
--- NOTE | 2017-01-16 10:43 | OPERATIVE REPORT ---
DATE OF OPERATION: 01/16/2017 PREOPERATIVE DIAGNOSIS: Acute cholecystitis, cholelithiasis. POSTOPERATIVE DIAGNOSIS: Same. PROCEDURE: Laparoscopic cholecystectomy. SURGEON: Dr. Rancho Finch. ANESTHESIA: General. ESTIMATED BLOOD LOSS: About 20 mL. FINDINGS: Acute cholecystitis, cholelithiasis. COMPLICATIONS: None. IV FLUIDS: 800 mL. INDICATIONS FOR THE PROCEDURE: This is a 21-year-old female who presented to the ED with acute right upper quadrant pain. The patient had ultrasound showing acute cholecystitis with gallstone. The patient was admitted to hospital and now patient ready to do the laparoscopy cholecystectomy, possible open, possible cholangiogram. I did talk to the patient about the benefit and risk, alternate procedure. I indicated the risks may include, but not limited to, such as bleeding, infection, injury to common bile duct, injury to bowel, bile leak and incisional hernia, even . The patient understands. She signed informed consent and I answered all questions. DETAILS OF PROCEDURE: We brought the patient to the OR, put the patient in the supine position on the OR table. The patient received SCD on bilateral legs to prevent DVT. Also, the patient received 600 mg of clindamycin IV for prophylactic antibiotic. The patient received general anesthesia without difficulty. The abdomen was prepped and draped in routine sterile fashion. After a timeout, I injected local anesthesia around the umbilical area. Then I made a small incision just above umbilical, opened fascia and opened peritoneum, under direct vision I put a Jessica trocar in, connected to CO2 to create pneumoperitoneum. Flow rate is 6 liter per minute. Pressure not more than 14 mmHg. Once we got a nice pneumoperitoneum, we put a 10 mm camera in and looked around the abdomen. Shows no more findings on the stomach, small bowel, large bowel, liver. No free fluid in the pelvic area; however, the omentum covers the gallbladder. Gallbladder shows acute cholecystitis and gallbladder wall edema with thickening. Then we put another three 5 mm trocars on the right upper quadrant. Once all trocars in, we put a grasper in to hold the base of the gallbladder, put the direction to the diaphragm and put another grasper to hold the pouch over the gallbladder, put the latter to explore the triangle of Calot. The cystic duct was identified and mobilized. Then I put two 5 mm metal clips on the proximal cystic duct, one on the distal cystic duct, then I used the scissor transecting the cystic duct. Then the cystic artery was identified and mobilized. I put two 5 mm metal clips on the proximal cystic artery and 1 on the distal cystic artery. Then I used the scissor to transection the cystic artery. Then I used Bovie to take down gallbladder without difficulty. Then we removed the gallbladder through the catch bag. Then we reinserted Jessica trocar and connected to CO2 to create a pneumoperitoneum again and looked around the abdomen. No active bleeding, no bile leak from the liver bed and then we removed all trocars under direct vision. No active bleeding from the trocar sites. The pneumoperitoneum was released. Then I closed the umbilical incision, in layered fashion by using #1 Vicryl [id number] x2, closed the subcutaneous layer by using 2-0 Vicryl, closed skin by using 4-0 Vicryl, the other three 5 mm trocar sites skin closed by using 4-0 Vicryl only. I put the dressing on. The patient tolerated the procedure well. After the procedure, the patient transferred to recovery room in stable condition. After the procedure, I did talk to the patient and the mom about the OR finding and procedure we did. They understand, the patient understands. I gave them the postop care instructions. I will follow the patient in 1 week. All the instrument, needle and sponge count correct x2 at the end of the case. The specimen sent to pathology. I attest to the content of the Intraoperative Record and any orders documented therein. Any exceptions are noted below. COREEN
[2017-01-16] MEDS: OXYCODONE/ACETAMINOPHEN 5-325 TAB PO PRN ×2 (11:31→16:22)
--- NOTE | 2017-01-16 12:22 | DISCHARGE SUMMARY ---
DATE OF DISCHARGE: 01/16/2017. ADMITTING DIAGNOSIS: Acute cholecystitis, cholelithiasis. POSTOPERATIVE DIAGNOSIS: Same. DISCHARGE DIAGNOSIS: Same. OPERATION: Laparoscopic cholecystectomy. SURGEON: Dr. Stef Vickers. DETAILS OF DISCHARGE SUMMARY: This is a 21-year-old female who presented to the ED with right upper quadrant pain. The patient has ultrasound shows acute cholecystitis with gallstone. The patient was admitted to the hospital for IV fluids, IV antibiotic, control of pain. Today the patient had laparoscopic cholecystectomy, procedure went very well. The patient go back to the recovery room and then later on transported to the surgical floor in stable condition. I saw the patient in the surgical floor. PHYSICAL EXAMINATION: VITAL SIGNS: Temperature is 97.2, heart rate is 89, respiratory rate 18, blood pressure 120/82. O2 saturation 100% on room air. The patient is alert, awake, oriented x3, no distress. HEAD, EYES, EARS, NOSE, AND THROAT: Within normal limitations. NEUROLOGICALLY: Exam intact. NECK: No JVD. CHEST: Bilateral lung sounds clear. HEART: Normal S1, S2. No murmur. ABDOMEN: No distention, soft. Incision pain and dressing intact. Bowel sounds positive. EXTREMITIES: No edema. Once the patient meets discharge criteria the patient will be discharged to home. I did talk to the patient and the patient's family member about the OR findings and procedure. We did also give them the postop care instructions. They will follow up in 1 week. They understand. Also instructed the patient and the patient's family member the patient should come back to the hospital ER if patient develops any severe abdominal pain, nausea, vomiting, diarrhea, temperature.
[2017-01-16 13:11] LABS: BASO % 0.1 %; BASO ABS # 0.01 K/uL (0-0.2); COMPLETE YES; HEMATOCRIT 44.3 % (37-47); IG% 0.2 %; LYMPH ABS # 1.12 K/uL (1.2-3.4); MEAN CELL VOLUME 81.3 fL (80-100); MEAN CORPUSCULAR HEMOGLOBIN 28.4 pg (25-34); MEAN PLATELET VOLUME 9.4 fL (7.4-10.4); MONO % 0.9 %; NEUT % 90.8 %; PLATELET COUNT 370 K/uL (130-400); RED BLOOD COUNT 5.45 M/uL (4.2-5.4); WHITE BLOOD COUNT 14.04 K/uL (4.8-10.8)
[2017-01-16 13:38] LABS: BUN/CREATININE RATIO 5.2 (10-20); CALCIUM 9.1 mg/dl (8.5-10.1); CREATININE 1.1 mg/dl (0.60-1.20); POTASSIUM 3.8 mmol/L (3.5-5.1)
[2017-01-17] MEDS ORDERED: CLINDAMYCIN 600 MG/54 ML D5W IV ONE (06:00)
== END 2017-01-16 18:15 | disposition home or self-care (01) | DRG 419 ==
LOC: ENRESERVDT → ENRESERVTM → C.EDB 01:05 → C.MSN 04:48
PROVIDERS: ADMIT Surgery; ATTEND Surgery
PROC: 0FT44ZZ Resection of Gallbladder, Percutaneous Endoscopic Approach (ICD-10-PCS; principal; 2017-01-16 07:00)
DX: K80.00 Calculus of gallbladder with acute cholecystitis without obstruction (principal)

== ENCOUNTER 2017-11-09 21:47 | Emergency (ER) | payer BC ==
[~2017-11-09] VITALS: Ht 157.5 cm; Wt 106.0 kg
[~2017-11-09 21:47] MED LIST changes: +ADVIN25/60 INH; +CHOL1000 PO; -FLUO10CA24 PO; -ONDA4TAB46 PO; -PRT/40 PO; -SENN-65 PO
[2017-11-09 21:51] VITALS: TEMP 36.5; Ht 157.5 cm; Wt 106.0 kg
[2017-11-09] MEDS ORDERED: ONDANSETRON INJ 2 MG/ML 2 ML VIAL IV STA (22:08)
[2017-11-09] MEDS ORDERED: KETOROLAC TROMETHAMINE 30 MG/ML VIAL IV STA (22:08)
[2017-11-09] MEDS ORDERED: SODIUM CHLORIDE 0.9% 1000ML 1,000 ML IV ONE (22:15)
[2017-11-09] MEDS ORDERED: ALBU18002 INH (22:22)
[2017-11-09] MEDS ORDERED: ERGO500037 PO (22:22)
[2017-11-09 22:44] LABS: URINE APPEARANCE CLOUDY (CLEAR); URINE BILIRUBIN NEG (NEG); URINE COLOR YELLOW; URINE EPITHELIAL CELL AUTO >30 /lpf (0-5); URINE NITRITE NEG (NEG); URINE SPECIFIC GRAVITY 1.026 (1.000-1.030); UROBILINOGEN NEG (NEG); ZZUR CULT IF INDIC CLEAN CATCH YES
[2017-11-09 22:54] LABS: HEMATOCRIT 40.4 % (37-47); MEAN CELL VOLUME 85.2 fL (80-100); MEAN CORPUSCULAR HEMOGLOBIN 29.1 pg (25-34); MEAN CORPUSCULAR HGB CONC 34.2 g/dl (32-36); MEAN PLATELET VOLUME 9.2 fL (7.4-10.4); PLATELET COUNT 385 K/uL (130-400); RED BLOOD COUNT 4.74 M/uL (4.2-5.4); WHITE BLOOD COUNT 9.85 K/uL (4.8-10.8)
[2017-11-09 22:54] LABS: MANUAL MICROSCOPIC REQUIRED? NO; REVIEW REQ? NO
[2017-11-09] MEDS ORDERED: PANT40TA2 PO (22:54)
[2017-11-09 23:11] LABS: BASO % 0.3 %; BASO ABS # 0.03 K/uL (0-0.2); BUN/CREATININE RATIO 16.7 (10-20); CALCIUM 8.7 mg/dl (8.5-10.1); COMPLETE YES; CREATININE 0.94 mg/dl (0.60-1.20); EOS % 1.6 %; IG% 0.2 %; LYMPH % 36.6 %; LYMPH ABS # 3.61 K/uL (1.2-3.4); MONO % 6.1 %; NEUT % 55.2 %; POTASSIUM 3.6 mmol/L (3.5-5.1)
[2017-11-09] MEDS ORDERED: LIDOCAINE HCL 2% VISC SOLN 20 ML UDC ONE (23:41)
[2017-11-09] MEDS ORDERED: ALUMINUM/MAGNESIUM SUSP 30 ML UDC ONE (23:41)
[2017-11-09] MEDS ORDERED: GI COCKTAIL PO ONE (23:45)
[2017-11-10 00:32] VITALS: BP 139/79; PULSE 74; O2SAT 98
--- NOTE | 2017-11-10 06:38 | EMERGENCY ROOM VISIT NOTE ---
History First contact with patient: 21:54 Chief Complaint: ABDOMINAL PAIN Stated Complaint: NAUSEA,ABD PAIN,SOB Nursing Triage Summary: Pt c/o nausea, upper abdominal pain and some diarrhea since last night. Pt denies vomiting, fever, chills. History of Present Illness The patient is a 22 year old female who presents to the Emergency Room with complaints of generalized nausea and upper abdominal pain for the past one day. The patient has not had fever, chills, or significant vomiting. She is mildly nauseated. She states that she had one episode of diarrhea. No new foods or recent travel history. No recent antibiotic use. The patient was able to work all day today, and states that her pain has slowly progressed. She does not identify aggravating or alleviating factors. She does have a past history including cholecystectomy. She rates her discomfort a 7/10. Review of Systems More than 10 systems were reviewed and otherwise negative with the exception of history of present illness. Past Medical/Surgical History Medical Problems: (1) Headache Surgical Problems: (1) H/O adenoidectomy (2) Rex teeth extracted Family History Not obtainable due to adoption Social History Smoking Status: Never Smoker Alcohol Use: none Drug Use: none Marital Status: single Housing Status: lives with family Occupation Status: employed Current/Historical Medications Scheduled Ergocalciferol (Vitamin D 57234 Unit), 1 CAP PO WK Fluticasone Prop/Salmeterol (Advair Diskus 250/50 60 Dose), 1 PUFF INH BID Pantoprazole (Pantoprazole Sodium), 40 MG PO DAILY Scheduled PRN Albuterol Sulfate (Proair Respiclick), 2 PUFFS INH Q4H PRN for SOB/Wheezing Physical Exam Vital Signs Date Time Temp Pulse Resp B/P (MAP) Pulse Ox O2 Delivery O2 Flow Rate FiO2 11/10/17 00:32 74 18 139/79 98 11/09/17 23:42 83 18 124/90 97 Room Air 11/09/17 21:51 36.5 91 18 155/86 94 Room Air Physical Exam VITALS: Vitals are noted on the nurse's note and reviewed by myself. Vital signs stable. GENERAL: Well-developed, well-nourished, white female, who is in no acute distress and resting comfortably. Patient is cooperative with the examination. HEAD: Normocephalic atraumatic. HEART: Regular rate and rhythm without murmurs gallops or rubs. LUNGS: Clear to auscultation bilaterally without wheezes, rales or rhonchi. No retractions or accessory muscle use. ABDOMEN: Positive normal bowel sounds x 4. Soft with mild epigastric abdominal tenderness on exam. MUSCULOSKELETAL: No muscle atrophy, erythema, or edema noted. Full range of motion without joint tenderness in all extremities. Medical Decision & Procedures Laboratory Results 11/09/17 22:37 Red Blood Count 4.74, Mean Corpuscular Volume 85.2, Mean Corpuscular Hemoglobin 29.1, Mean Corpuscular Hemoglobin Concent 34.2, Mean Platelet Volume 9.2, Neutrophils (%) (Auto) 55.2, Lymphocytes (%) (Auto) 36.6, Monocytes (%) (Auto) 6.1, Eosinophils (%) (Auto) 1.6, Basophils (%) (Auto) 0.3, Neutrophils # (Auto) 5.43, Lymphocytes # (Auto) 3.61, Monocytes # (Auto) 0.60, Eosinophils # (Auto) 0.16, Basophils # (Auto) 0.03 11/09/17 22:37 Test 11/09/17 22:20 11/09/17 22:37 Urine Color YELLOW Urine Appearance CLOUDY (CLEAR) Urine pH 5.0 (4.5-7.5) Urine Specific [place] 1.026 (1.000-1.030) Urine Protein NEG (NEG) Urine Glucose (UA) NEG (NEG) Urine Ketones NEG (NEG) Urine Occult Blood NEG (NEG) Urine Nitrite NEG (NEG) Urine Bilirubin NEG (NEG) Urine Urobilinogen NEG (NEG) Urine Leukocyte Esterase SMALL (NEG) Urine WBC (Auto) 10-30 /hpf (0-5) Urine RBC (Auto) 0-4 /hpf (0-4) Urine Hyaline Casts (Auto) 1-5 /lpf (0-5) Urine Epithelial Cells (Auto) >30 /lpf (0-5) Urine Bacteria (Auto) 1+ (NEG) Urine Test NEG (NEG) White Blood Count 9.85 K/uL (4.8-10.8) Red Blood Count 4.74 M/uL (4.2-5.4) Hemoglobin 13.8 g/dL (12.0-16.0) Hematocrit 40.4 % (37-47) Mean Corpuscular Volume 85.2 fL (80-100) Mean Corpuscular Hemoglobin 29.1 pg (25-34) Mean Corpuscular Hemoglobin Concent 34.2 g/dl (32-36) Platelet Count 385 K/uL (130-400) Mean Platelet Volume 9.2 fL (7.4-10.4) Neutrophils (%) (Auto) 55.2 % Lymphocytes (%) (Auto) 36.6 % Monocytes (%) (Auto) 6.1 % Eosinophils (%) (Auto) 1.6 % Basophils (%) (Auto) 0.3 % Neutrophils # (Auto) 5.43 K/uL (1.4-6.5) Lymphocytes # (Auto) 3.61 K/uL (1.2-3.4) Monocytes # (Auto) 0.60 K/uL (0.11-0.59) Eosinophils # (Auto) 0.16 K/uL (0-0.5) Basophils # (Auto) 0.03 K/uL (0-0.2) RDW Standard Deviation 38.7 fL (36.4-46.3) RDW Coefficient of Variation 12.5 % (11.5-14.5) Immature Granulocyte % (Auto) 0.2 % Immature Granulocyte # (Auto) 0.02 K/uL (0.00-0.02) Anion Gap 4.0 mmol/L (3-11) Est Creatinine Clear Calc Drug Dose 106.5 ml/min Estimated GFR () 99.1 Estimated GFR (Non- 85.5 BUN/Creatinine Ratio 16.7 (10-20) Calcium Level 8.7 mg/dl (8.5-10.1) Total Bilirubin 0.2 mg/dl (0.2-1) Aspartate Amino Transf (AST/SGOT) 18 U/L (15-37) Alanine Aminotransferase (ALT/SGPT) 32 U/L (12-78) Alkaline Phosphatase 64 U/L (45-117) Total Protein 7.7 gm/dl (6.4-8.2) Albumin 3.8 gm/dl (3.4-5.0) Globulin 3.9 gm/dl (2.5-4.0) Albumin/Globulin Ratio 1.0 (0.9-2) Lipase 186 U/L (73-393) Medications Administered Medications (Trade) Dose Ordered Sig/Saud Route Start Time Stop Time Status Last Admin Dose Admin Sodium Chloride 1,000 ml @ 999 mls/hr Q1H1M ONCE IV 11/09/17 22:15 11/09/17 23:15 DC 11/09/17 22:40 999 MLS/HR Ondansetron HCl (Zofran Inj) 4 mg NOW STAT IV 11/09/17 22:08 11/09/17 22:10 DC 11/09/17 22:40 4 MG Ketorolac Tromethamine (Toradol Inj) 30 mg NOW STAT IV 11/09/17 22:08 11/09/17 22:10 DC 11/09/17 22:40 30 MG Al Hydroxide/Mg Hydroxide (Maalox Susp) 30 ml STK-MED ONCE .ROUTE 11/09/17 23:41 11/09/17 23:42 DC 11/09/17 23:56 30 ML Lidocaine HCl (Viscous Lidocaine 2% Soln) 20 ml STK-MED ONCE .ROUTE 11/09/17 23:41 11/09/17 23:42 DC 11/09/17 23:56 20 ML ED Course Physical exam and history were performed. Nursing notes, EMR, and Medication List were personally reviewed. Patient appears to have epigastric abdominal pain with nausea essentially for the past one day. She does not appear toxic on examination. She has some mild abdominal tenderness, but no distinct point tenderness. She is without a gallbladder. IV access was established and labs were obtained. The patient was medicated as above. I did elect to perform plain films. The patient's blood work is as above and was reviewed. She does not have a significantly elevated white blood cell count, gross anemia, anemia, or significant electrolyte imbalance. Her lipase and transaminases are nondiagnostic. X-ray does not show significant acute process such as small bowel obstruction, perforation, or pneumonia. The patient may have some increased stool throughout the colon. Overall the patient feels improved after medication here in the department. Repeat abdominal examination continues without findings consistent with acute surgical abdomen. I discussed options with the patient, and feel that she is well for discharge home. I clinically suspect the patient's discomfort may be related to a viral or foodborne etiology, however cannot rule out a functional constipation cause. The patient was given instructions on this, and she will need to follow with her PCP in the next few days. She was otherwise invited back to the ER with any new, worsening, or concerning symptoms. She voiced understanding and was discharged home under the care of her mother. The chart was completed utilizing [email or web address] Speech Voice Recognition Software. Grammatical errors, random word insertions, pronoun errors, and incomplete sentences are an occasional consequence of this system due to software limitations, ambient noise, and hardware issues. Any formal questions or concerns about the content, text, or information contained within the body of this dictation should be directly addressed to the provider for clarification. . Medical Decision Differential diagnosis: Etiologies such as appendicitis, diverticulitis, PUD, biliary pathology, UTI, pancreatitis, obstruction, mesenteric ischemia, aortic pathology, infections, inflammatory bowel disease, renal colic, as well as others were entertained. Impression Primary Impression: Generalized abdominal pain Departure Information Dispostion Home / Self-Care Condition GOOD Forms HOME CARE DOCUMENTATION FORM, IMPORTANT VISIT INFORMATION Patient Instructions [facility] Additional Instructions You were seen and evaluated today on an emergency basis only. This is not a substitute for, or an effort to provide, complete comprehensive medical care. It is not possible to recognize and treat all injuries or illnesses in a single emergency department visit. For this reason it is recommended that you followup with your primary care physician with any ongoing or persistent symptoms For baseline pain relief you may alternate ibuprofen and acetaminophen every 4 hours for pain control. Take 600 mg ibuprofen (Advil) and then 4 hours later take 1000 mg acetaminophen (Tylenol). Do not take more than 3000 mg acetaminophen in a single day. Drink fluids and remain well hydrated. Consider taking MiraLAX or a stool softener such as Colace. You are welcome to return to the emergency department anytime with new, worsening, or concerning symptoms.
--- NOTE | 2017-11-10 07:29 | DIAGNOSTIC IMAGING REPORT ---
CHEST AND ABDOMEN 2 VIEWS HISTORY: Epigastric abd pain COMPARISON: [facility] 08/21/2015. Chest 08/20/2015. FINDINGS: The lungs are clear. The cardiomediastinal silhouette is within normal limits. There is no pneumoperitoneum or pneumatosis. The bowel gas pattern is unremarkable. No evidence for bowel obstruction. No pathologic calcifications. Cholecystectomy. Small to moderate amount of well-formed stool seen within the colon. IMPRESSION: No acute cardiopulmonary process. No evidence for bowel obstruction. Electronically signed by: Herbert Katz M.D. 11/10/2017 7:27 AM Dictated Date/Time: 11/10/2017 7:24 AM
== END 2017-11-10 00:35 | disposition home or self-care (01) ==
LOC: C.EDB 21:50
DX: R10.84 Generalized abdominal pain (principal); R11.0 Nausea; Z90.49 Acquired absence of other specified parts of digestive tract

== ENCOUNTER 2024-02-01 21:09 | Observation (INO) ==
[2024-02-01 21:59] LABS: Basophils # (auto) 0.04 K/uL (0.00-0.20); Basophils % (auto) 0.3 %; Eosinophils # (auto) 0.15 K/uL (0.00-0.50); Eosinophils % (auto) 1.3 %; Hematocrit (blood only) 43.6 % (37.0-47.0); Hemoglobin 14.6 g/dl (12.0-16.0); Immature Granulocytes # (auto) 0.05 K/uL (0.01-0.20); Immature Granulocytes % (auto) 0.4 %; Lymphocytes # (auto) 3.95 K/uL (1.20-3.40); Mean Corpuscular Hemoglobin 27.8 pg (25.0-34.0); Mean Corpuscular Hgb Conc 33.5 g/dL (32.0-36.0); Mean Platelet Volume 9.1 fL (9.4-12.4); Monocytes # (auto) 0.73 K/uL (0.11-0.59); Monocytes % (auto) 6.3 %; Neutrophils # (auto) 6.69 K/uL (1.40-6.50); Neutrophils % (auto) 57.7 %; Platelet Count 486 K/uL (130-400); RDW Coefficient of Variation 12.2 % (11.5-14.5); RDW Standard Deviation 36.8 fL (36.4-46.3); Red Blood Count 5.25 M/uL (4.20-5.40); White Blood Count 11.61 K/ul (4.8-10.8)
[2024-02-01 22:12] LABS: Albumin Globulin Ratio 1.3 (0.9-2); Albumin Level 4.4 gm/dl (3.4-5.0); BUN Creatinine Ratio 14.3 (10-20); Bilirubin,Total 0.3 mg/dl (0.2-1.0); Calcium 9.4 mg/dl (8.6-10.3); Creatinine Clr Calc Pharmacy 121.2 ml/min; Est GFR (African American) 108.9 ml/min; Est GFR (Non-African American) 93.9 ml/min; Globulin 3.5 gm/dl (2.5-4.0); Potassium 3.9 mmol/L (3.5-5.1); Total Protein 7.9 gm/dl (6.0-8.3)
[2024-02-01] MEDS: ONDANSETRON INJ 2 MG/ML 2 ML VIAL IV STA (22:17)
[2024-02-01] MEDS: ACETAMINOPHEN 1,000 MG/100 ML VIAL IV STA (22:17)
[2024-02-01] MEDS: SODIUM CHLORIDE 0.9% 1,000 ML IV ONE (22:18)
[2024-02-01 23:36] LABS: Appearance Urine Clear (Clear); Bilirubin Urine Negative (Negative); Blood Urine Negative (Negative); Color Urine Yellow; Glucose Urine UA Negative (Negative); Ketones Urine Negative (Negative); Leukocyte Esterase Urine Negative (Negative); Nitrite Urine Negative (Negative); Protein Urine Negative (Negative); Specific Gravity Urine 1.008 (1.000-1.030); Urobilinogen Urine Negative (Negative)
[2024-02-02] MEDS: KETOROLAC 30 MG/ML VIAL IV STA
[2024-02-02] MEDS: oxyCODONE HCL IR 5 MG TAB (IMMEDIATE RELEASE) PO STA
[2024-02-02] MEDS: MoRPHine SULFATE 4 MG/ML 1 ML CARP\\VIAL IV STA (00:55)
--- NOTE | 2024-02-02 01:17 | Emergency Department Note ---
Impression & Plan Kidney stone, Right flank pain, Nausea ED Provider Note CHIEF COMPLAINT: Right flank pain, kidney stone HISTORY OF PRESENT ILLNESS: This 28-year-old female patient presents to the emergency department via private vehicle for evaluation of right flank pain. The patient has a known kidney stone. This was diagnosed 3 days ago here in the emergency department. She states she was discharged home on oxycodone, Flomax and her symptoms worsened today. She states that she took ibuprofen and Tylenol today throughout the day at work. When she returned home, her pain flared up. She took 1 dose of oxycodone and her pain persisted. She presented to the emergency department at this time. The patient denies any fever. No vomiting, but there has been nausea. No hematuria, urinary frequency, urinary hesitancy. She states the pain does seem to be lower than it was earlier in the week. Otherwise, notes the pain feels the same. Patient rates her pain 10/10. REVIEW OF SYSTEMS: A 10 system review of systems was performed with positives and pertinent negatives listed in the history of present illness. All other systems were reviewed and are negative. ALLERGIES: Penicillin, Augmentin PHYSICAL EXAM: VITALS: Vitals are noted on the nurse's note and reviewed by myself. Vital signs stable. GENERAL: This is a 28-year-old female, in no acute distress, nondiaphoretic, well-developed well-nourished. SKIN: The skin was without rashes, erythema, edema, or bruising. There is no tenting of the skin. Capillary refill less than 2 seconds. HEAD: Normocephalic atraumatic. EYES: Conjunctivae without injection, sclerae without icterus. NECK: Supple without nuchal rigidity. No JVD. HEART: Regular rate and rhythm without murmurs gallops or rubs. LUNGS: Clear to auscultation bilaterally without wheezes, rales or rhonchi. No retractions or accessory muscle use. ABDOMEN: Positive bowel sounds x 4. Soft, nontender, without masses or organomegaly. Christianson sign negative. No guarding or rebound tenderness. Right CVA tenderness. MUSCULOSKELETAL: No muscle atrophy, erythema, or edema noted. Full range of motion without joint tenderness in all extremities. No tenderness to palpation. Normal gait. Strength 5/5 throughout. NEURO: Patient was alert and oriented to person place and time. No focal neurological deficits. An order was placed for continuous gambling monitor. The monitor showed a normal sinus rhythm at a ventricular rate of 77 bpm, per my interpretation. Previous medical records including ED visit completed earlier this week was reviewed. CT scan at that time showed a 5 mm proximal ureteral stone on the right side. EMERGENCY DEPARTMENT COURSE: The patient was seen and evaluated as above. Previous medical records reviewed as noted. IV access was obtained, labs were drawn. The patient was medicated with IV fluids and acetaminophen. Labs were reviewed. Per my interpretation, no concerning leukocytosis, anemia, thrombocytopenia. Renal, hepatic function, and electrolytes without significant abnormality. hCG negative. Urinalysis negative for blood or evidence of infection. The patient was reassessed. She notes persistent pain. Suspect the stone may be moving contributing to her symptoms. There is no evidence of infected stone. There is no reproducible abdominal tenderness to palpation. She was medicated with IV Toradol and Oxy IR. Patient was again reassessed. She notes significant pain. She was medicated with additional IV morphine. I did recommend admission for intractable pain at this time. The patient was agreeable. I discussed the case with the process excellence manager. I discussed the case with Dr. Gann. He did agree to evaluate the patient for admission. Please see hospitalist dictation regarding ongoing management care of this patient. Case was discussed with the attending physician. I attest that I have personally reviewed the patient medication list. I attest that I have reviewed the patient's blood pressure and it was found to be elevated. Referred to hospitalist for further management. GCS: 15 In the evaluation and treatment of this patient the following differential diagnoses were entertained: Renal colic, UTI, appendicitis, diverticulitis, mesenteric ischemia, aortic pathology, infections, inflammatory bowel disease, PUD, biliary pathology, as well as other pathologies. The chart was completed utilizing [employer] voice recognition software. Grammatical errors, random word insertions, pronoun errors, and incomplete sentences are an occasional consequence of this system due to software limitations, ambient noise, and hardware issues. Any formal questions or concerns about the content, text, or information contained within the body of this dictation should be directly addressed to the provider for clarification. Past Med/Surg History Medical History (Updated 02/02/24 @ 02:27 by Makenna Garza PA-C) Asthma Depression Anxiety Mood disorder Hyperbilirubinemia Headache Surgical History History of orthopedic surgery H/O adenoidectomy [place] teeth extracted Family History Other Migraines Social History Smoking Status: Never smoker Preferred Language: Danish Current Living Situation: Family Feels Safe at Home: Yes Allergies Allergies Allergy/AdvReac Type Severity Reaction Status Date / Time amoxicillin Allergy Intermediate Nausea/Vomi Verified 01/29/24 13:07 ting clavulanic acid Allergy Mild Mild Verified 01/29/24 13:07 vomiting & NO RASH. Penicillins Allergy Mild VOMITING Verified 01/29/24 13:07 Home Meds Home Medications Medication Instructions Recorded Confirmed bupropion HCl 200 mg tablet,12 hr 400 mg PO QAM 08/03/22 02/01/24 sustained-release ergocalciferol (vitamin D2) 1,250 1,250 mcg PO WK 08/03/22 02/01/24 mcg (50,000 unit) capsule (Vitamin D2) fluoxetine 40 mg capsule 40 mg PO QAM 08/03/22 02/01/24 fluoxetine 20 mg capsule 20 mg PO DAILY 01/29/24 02/01/24 rimegepant 75 mg disintegrating 75 mg PO DAILY PRN Migraine 01/29/24 02/01/24 tablet (Nurtec ODT) Headache trazodone 50 mg tablet 50 mg PO HS 01/29/24 02/01/24 Previous Rx's Medication Instructions Recorded albuterol sulfate 90 mcg/actuation 2 inh inhalation Q6H PRN shortness 11/24/23 breath activated powder inhaler of breath or wheezing #1 ea cephalexin 500 mg capsule 500 mg PO BID 7 days #14 caps 01/29/24 oxycodone-acetaminophen 5 mg-325 1 tab PO Q8H PRN pain #14 tabs 01/29/24 mg tablet (Percocet) tamsulosin 0.4 mg capsule (Flomax) 0.4 mg PO DAILY #14 caps 01/29/24 Results & Data (ED) Vital Signs Vital Signs - 24 hr 02/01/24 21:13 02/01/24 23:10 02/01/24 23:57 Temperature 36.5 C Temperature Source Temporal Artery Scan Pulse Rate 89 Pulse Rate [Finger] 91 H 72 Respiratory Rate 18 18 18 Respiratory Effort / Characteristics Non-Labored Spontaneous Non-Labored Spontaneous Respiratory Depth Normal Normal Respiratory Pattern Regular Blood Pressure 160/118 H Blood Pressure [Right Arm] 168/113 H 177/106 H Blood Pressure Mean 132 Blood Pressure Mean [Right Arm] 131 129 Pulse Oximetry 97 99 97 Oxygen Delivery Method Room Air Room Air Room Air Sepsis Recent Fever Within 48 Hours No Sepsis New/Unexplained Change in Mental Status No Sepsis Action Taken by Nursing No Action Required 02/02/24 00:34 02/02/24 00:59 02/02/24 01:50 Temperature Temperature Source Pulse Rate Pulse Rate [Finger] 77 82 Respiratory Rate 17 20 18 Respiratory Effort / Characteristics Respiratory Depth Respiratory Pattern Blood Pressure Blood Pressure [Right Arm] 139/86 139/101 H Blood Pressure Mean Blood Pressure Mean [Right Arm] 103 113 Pulse Oximetry 96 99 100 Oxygen Delivery Method Room Air Room Air Room Air Sepsis Recent Fever Within 48 Hours Sepsis New/Unexplained Change in Mental Status Sepsis Action Taken by Nursing Laboratory Data 02/01/24 21:28 02/01/24 21:28 Lab Results 02/01/24 02/01/24 Range/Units 21:28 23:18 WBC 11.61 H (4.8-10.8) K/ul RBC 5.25 (4.20-5.40) M/uL Hgb 14.6 (12.0-16.0) g/dl Hct 43.6 (37.0-47.0) % MCV 83.0 (80.0-100.0) fL MCH 27.8 (25.0-34.0) pg MCHC 33.5 (32.0-36.0) g/dL RDW Std Deviation 36.8 (36.4-46.3) fL RDW Coeff of Zainab 12.2 (11.5-14.5) % Plt Count 486 H (130-400) K/uL MPV 9.1 L (9.4-12.4) fL Immature Gran % (Auto) 0.4 % Neut % (Auto) 57.7 % Lymph % (Auto) 34.0 % [place] % (Auto) 6.3 % Eos % (Auto) 1.3 % Baso % (Auto) 0.3 % Neut # (Auto) 6.69 H (1.40-6.50) K/uL Lymph # (Auto) 3.95 H (1.20-3.40) K/uL [place] # (Auto) 0.73 H (0.11-0.59) K/uL Eos # (Auto) 0.15 (0.00-0.50) K/uL Baso # (Auto) 0.04 (0.00-0.20) K/uL Immature Gran # (Auto) 0.05 (0.01-0.20) K/uL Sodium 136 (136-145) mmol/L Potassium 3.9 (3.5-5.1) mmol/L Chloride 104 (98-107) mmol/L Carbon Dioxide 22 (21-32) mmol/L Anion Gap 10 (3-11) BUN 12 (6-23) mg/dl Creatinine 0.84 (0.6-1.2) mg/dl Est Cr Clr Drug Dosing 121.2 ml/min Est GFR ( Amer) 108.9 ml/min Est GFR (Non-Af Amer) 93.9 ml/min BUN/Creatinine Ratio 14.3 (10-20) Glucose 106 H (70-99(Fasting)) mg/dl Calcium 9.4 (8.6-10.3) mg/dl Total Bilirubin 0.3 (0.2-1.0) mg/dl AST 22 (13-39) U/L ALT 38 (7-52) U/L Alkaline Phosphatase 65 (34-104) U/L Total Protein 7.9 (6.0-8.3) gm/dl Albumin 4.4 (3.4-5.0) gm/dl Globulin 3.5 (2.5-4.0) gm/dl Albumin/Globulin Ratio 1.3 (0.9-2) Urine Color Yellow Urine Appearance Clear (Clear) Urine pH 6.0 (4.5-7.5) Ur Specific [place] 1.008 (1.000-1.030) Urine Protein Negative (Negative) Urine Glucose (UA) Negative (Negative) Urine Ketones Negative (Negative) Urine Blood Negative (Negative) Urine Nitrite Negative (Negative) Urine Bilirubin Negative (Negative) Urine Urobilinogen Negative (Negative) Ur Leukocyte Esterase Negative (Negative) POC Ur Test NEG (NEG) Administered Medications Sodium Chloride (Nss) 1,000 mls @ 80 mls/hr IV .[id number] STA Stop: 02/02/24 14:14 Last Admin: 02/02/24 01:58 Dose: 80 mls/hr Documented By: LUIS Discontinued Medications Hydromorphone HCl (Hydromorphone Inj 1 Mg/Ml Syringe) 1 mg IV NOW STA Stop: 02/02/24 01:43 Last Admin: 02/02/24 01:54 Dose: 1 mg Documented By: LUIS Sodium Chloride (Nss) 1,000 mls @ 999 mls/hr IV .[id number] ONE Stop: 02/01/24 22:57 Last Infusion: 02/01/24 23:19 Dose: Infused Documented By: Admin: 02/01/24 22:18 Dose: 999 mls/hr Documented By: XU Acetaminophen (Ofirmev) 1,000 mg in 100 mls @ 400 mls/hr IV NOW STA Stop: 02/01/24 22:11 Last Infusion: 02/01/24 22:33 Dose: Infused Documented By: Admin: 02/01/24 22:17 Dose: 400 mls/hr Documented By: XU Ketorolac Tromethamine (Ketorolac 30 Mg/Ml Vial) 30 mg IV NOW STA Stop: 02/01/24 23:55 Last Admin: 02/02/24 00:00 Dose: 30 mg Documented By: LUIS Morphine Sulfate (Morphine Sulfate 4 Mg/Ml 1 Ml Carp\Vial) 4 mg IV NOW STA Stop: 02/02/24 00:47 Last Admin: 02/02/24 00:55 Dose: 4 mg Documented By: LUIS Ondansetron HCl (Ondansetron Inj 2 Mg/Ml 2 Ml Vial) 4 mg IV NOW STA Stop: 02/01/24 21:58 Last Admin: 02/01/24 22:17 Dose: 4 mg Documented By: XU Oxycodone HCl (Oxycodone Hcl Ir 5 Mg Tab (Immediate Release)) 5 mg PO NOW STA Stop: 02/01/24 23:55 Last Admin: 02/02/24 00:00 Dose: 5 mg Documented By: LUSI Discharge Plan Visit Data Chief Complaint: Kidney Stone Stated Complaint: KIDNEY STONE, BACK PAIN, RT FLANK PAIN, NAUSEA ED Provider: Reynaldo Tubbs ED Midlevel Provider: Makenna Garza Discharge Problem: Kidney stone, Right flank pain, Nausea Patient Disposition: Admitted As Inpatient Forms Stand Alone Forms: My [facility] Prescriptions Prescriptions: No Action albuterol sulfate 90 mcg/actuation aerosol powdr breath activated 2 inh inhalation Q6H PRN (Reason: shortness of breath or wheezing) Qty: 1 0RF Rx Instructions: administer with spacer fluoxetine 40 mg capsule 40 mg PO QAM ergocalciferol (vitamin D2) [Vitamin D2] 1,250 mcg (50,000 unit) capsule 1,250 mcg PO WK Rx Instructions: Sun bupropion HCl 200 mg tablet sustained-release 12 hr 400 mg PO QAM trazodone 50 mg tablet 50 mg PO HS fluoxetine 20 mg capsule 20 mg PO DAILY Nurtec ODT 75 mg tablet,disintegrating 75 mg PO DAILY PRN (Reason: Migraine Headache) cephalexin 500 mg capsule 500 mg PO BID 7 Days Qty: 14 0RF oxycodone-acetaminophen [Percocet] 5-325 mg tablet 1 tab PO Q8H PRN (Reason: pain) Qty: 14 0RF tamsulosin [Flomax] 0.4 mg capsule 0.4 mg PO DAILY Qty: 14 0RF Referrals Referrals: Sharon Cooper, [Primary Care Provider] -
[2024-02-02] MEDS ORDERED: PROMETHAZINE HCL 12.5 MG in SODIUM CHLORIDE 0.9% 50 ML IV PRN (01:23)
[2024-02-02] MEDS ORDERED: LORazepam 0.5 MG TAB PO PRN (01:23)
[2024-02-02] MEDS ORDERED: KETOROLAC TROMETHAMINE 15 MG/ML VIAL IV PRN (01:23)
--- NOTE | 2024-02-02 01:43 | History & Physical Report ---
Date of Service February 02, 2024 Assessment & Plan (1) Obstructive uropathy: Plan: Right-sided kidney stone with note of hydronephrosis on recent imaging No sepsis for now Situational hypertension BP currently improved. hypothyroidism, euthyroid as of recent outpatient TSH migraine, transient worsening migraine headache symptoms at home as per patient, patient currently headache free possible NORMA, patient awaiting home sleep apnea test scheduling anxiety/mood disorder, stable on regimen Morbid obesity GMF Continue Flomax Strain urine Urology consult Re: Obstructive uropathy N.p.o. until patient seen by urology in anticipation of procedure DVT prophylaxis. Lovenox subcu Full code Text document was generated using [employer] voice recognition software. It may contain grammatical or spelling errors. Kindly contact undersigned for clarification of any documentation item in question. History of Present Illness Chief Complaint: Worsening right flank pain Primary Care Provider: Sharon Cooper, History obtained from patient and records. Medical history significant for hypothyroidism, migraine, urolithiasis, possible NORMA, anxiety/mood disorder. Last confinement 2016 under General Surgery service for cholecystitis status post laparoscopic cholecystectomy. 4 days ago patient experience achy right flank pain symptoms associated with nausea and vomiting. No fever, no chills, no hematuria. No prior episodes of kidney stones. Patient consulted ER. CT abdomen pelvis showed 5 mm proximal ureteric stone with associated hydronephrosis. Patient discharged on Flomax, Keflex, oxycodone prescriptions following ED provider discussion with Urology provider. Patient to wait for Urology appointment as per note. Worsening symptoms at home without stone passage despite compliance with new prescriptions. Transient worsening of migraine headache symptoms. Patient returned to ER. Initial SBP 170s, currently 130s. 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 Penicillins Allergy Mild VOMITING Verified 01/29/24 13:07 Home Medications Medication Instructions Recorded Confirmed Type bupropion HCl 200 mg tablet,12 hr 400 mg PO QAM 08/03/22 02/01/24 History sustained-release ergocalciferol (vitamin D2) 1,250 1,250 mcg PO WK 08/03/22 02/01/24 History mcg (50,000 unit) capsule (Vitamin D2) fluoxetine 40 mg capsule 40 mg PO QAM 08/03/22 02/01/24 History albuterol sulfate 90 mcg/actuation 2 inh inhalation Q6H PRN shortness 11/24/23 02/01/24 Rx breath activated powder inhaler of breath or wheezing #1 ea cephalexin 500 mg capsule 500 mg PO BID 7 days #14 caps 01/29/24 02/01/24 Rx fluoxetine 20 mg capsule 20 mg PO DAILY 01/29/24 02/01/24 History oxycodone-acetaminophen 5 mg-325 1 tab PO Q8H PRN pain #14 tabs 01/29/24 02/01/24 Rx mg tablet (Percocet) rimegepant 75 mg disintegrating 75 mg PO DAILY PRN Migraine 01/29/24 02/01/24 History tablet (Nurtec ODT) Headache tamsulosin 0.4 mg capsule (Flomax) 0.4 mg PO DAILY #14 caps 01/29/24 02/01/24 Rx trazodone 50 mg tablet 50 mg PO HS 01/29/24 02/01/24 History Past Med/Surg History Medical History (Updated 02/02/24 @ 02:53 by Israel Gann MD) Asthma Depression Anxiety Mood disorder Hyperbilirubinemia Headache Surgical History History of orthopedic surgery H/O adenoidectomy [place] teeth extracted Family History Other Migraines Social History Smoking Status: Never smoker Preferred Language: [place] Current Living Situation: Family Feels Safe at Home: Yes Review of Systems Review of Systems: As per HPI, all other systems reviewed and negative Physical Exam Physical Exam: GENERAL: uncomfortable, pleasant, morbidly obese, no respiratory distress SKIN: Normal color, warm HEENT: [place] palpebral conjunctivae, no ptosis, dry buccal mucosa NECK : Supple, short neck, no tenderness CHEST : CTA, no tenderness HEART : RRR, no obvious murmurs ABDOMEN: Some distention, right flank tenderness EXTREMITIES : Minimal LE swelling, no LE tenderness, no other conspicuous deformities noted NEUROLOGIC : Coherent, no facial asymmetry, no other gross focality Results & Data Results & Data Vital Signs (Past 12 Hours) Vital Signs Temp Pulse Pulse Resp BP BP Pulse Ox 02/02/24 00:59 77 20 139/86 99 02/02/24 00:34 17 96 02/01/24 23:57 72 18 177/106 H 97 02/01/24 23:10 91 H 18 168/113 H 99 02/01/24 21:13 36.5 C 89 18 160/118 H 97 O2 Del Method 02/02/24 00:59 Room Air 02/02/24 00:34 Room Air 02/01/24 23:57 Room Air 02/01/24 23:10 Room Air 02/01/24 21:13 Room Air Laboratory Results Laboratory Results WBC 11.61 K/ul (4.8-10.8) H 02/01/24 21:28 RBC 5.25 M/uL (4.20-5.40) 02/01/24 21:28 Hgb 14.6 g/dl (12.0-16.0) 02/01/24 21: Hct 43.6 % (37.0-47.0) 02/01/24 21:28 MCV 83.0 fL (80.0-100.0) 02/01/24 21:28 MCH 27.8 pg (25.0-34.0) 02/01/24 21: MCHC 33.5 g/dL (32.0-36.0) 02/01/24 21:28 RDW Std Deviation 36.8 fL (36.4-46.3) 02/01/24 21:28 RDW Coeff of Zainab 12.2 % (11.5-14.5) 02/01/24 21: Plt Count 486 K/uL (130-400) H 02/01/24 21:28 MPV 9.1 fL (9.4-12.4) L 02/01/24 21:28 Immature Gran % (Auto) 0.4 % 02/01/24 21:28 Neut % (Auto) 57.7 % 02/01/24: Lymph % (Auto) 34.0 % 02/01/24 21: [place] % (Auto) 6.3 % 02/01/24: Eos % (Auto) 1.3 % 02/01/24: Baso % (Auto) 0.3 % 02/01/24: Neut # (Auto) 6.69 K/uL (1.40-6.50) H 02/01/24: Lymph # (Auto) 3.95 K/uL (1.20-3.40) H 02/01/24: [place] # (Auto) 0.73 K/uL (0.11-0.59) H 02/01/24: Eos # (Auto) 0.15 K/uL (0.00-0.50) 02/01/24: Baso # (Auto) 0.04 K/uL (0.00-0.20) 02/01/24: Immature Gran # (Auto) 0.05 K/uL (0.01-0.20) 02/01/24: Sodium 136 mmol/L (136-145) 02/01/24: Potassium 3.9 mmol/L (3.5-5.1) 02/01/24: Chloride 104 mmol/L (98-107) 02/01/24: Carbon Dioxide 22 mmol/L (21-32) 02/01/24: Anion Gap 10 (3-11) 02/01/24: BUN 12 mg/dl (6-23) 02/01/24: Creatinine 0.84 mg/dl (0.6-1.2) 02/01/24: Est Cr Clr Drug Dosing 121.2 ml/min 02/01/24: Est GFR ( Amer) 108.9 ml/min 02/01/24: Est GFR (Non-Af Amer) 93.9 ml/min 02/01/24: BUN/Creatinine Ratio 14.3 (10-20) 02/01/24: Glucose 106 mg/dl (70-99(Fasting)) H 02/01/24: Calcium 9.4 mg/dl (8.6-10.3) 02/01/24 21:28 Total Bilirubin 0.3 mg/dl (0.2-1.0) 02/01/24 21:28 AST 22 U/L (13-39) 02/01/24 21:28 ALT 38 U/L (7-52) 02/01/24 21:28 Alkaline Phosphatase 65 U/L (34-104) 02/01/24 21:28 Total Protein 7.9 gm/dl (6.0-8.3) 02/01/24 21:28 Albumin 4.4 gm/dl (3.4-5.0) 02/01/24 21:28 Globulin 3.5 gm/dl (2.5-4.0) 02/01/24 21:28 Albumin/Globulin Ratio 1.3 (0.9-2) 02/01/24 21:28 Urine Color Yellow 02/01/24 23:18 Urine Appearance Clear (Clear) 02/01/24 23:18 Urine pH 6.0 (4.5-7.5) 02/01/24 23:18 Ur Specific [place] 1.008 (1.000-1.030) 02/01/24 23:18 Urine Protein Negative (Negative) 02/01/24 23:18 Urine Glucose (UA) Negative (Negative) 02/01/24 23:18 Urine Ketones Negative (Negative) 02/01/24 23:18 Urine Blood Negative (Negative) 02/01/24 23:18 Urine Nitrite Negative (Negative) 02/01/24 23:18 Urine Bilirubin Negative (Negative) 02/01/24 23:18 Urine Urobilinogen Negative (Negative) 02/01/24 23:18 Ur Leukocyte Esterase Negative (Negative) 02/01/24 23:18 POC Ur Test NEG (NEG) 02/01/24 23:18
[2024-02-02] MEDS: HYDROmorphone INJ 1 MG/ML SYRINGE IV STA (01:54)
[2024-02-02] MEDS: SODIUM CHLORIDE 0.9% 1,000 ML IV STA (01:58)
[2024-02-02] MEDS: traZODone HCL 50 MG TAB PO STA (03:22)
[2024-02-02] MEDS: cloNIDine HCL 0.1 MG TAB PO ONE (05:07)
[2024-02-02] MEDS: ACETAMINOPHEN 325 MG TAB PO PRN (05:10)
[2024-02-02 06:54] LABS: Basophils # (auto) 0.03 K/uL (0.00-0.20); Basophils % (auto) 0.5 %; Eosinophils # (auto) 0.14 K/uL (0.00-0.50); Eosinophils % (auto) 2.2 %; Hematocrit (blood only) 38.2 % (37.0-47.0); Hemoglobin 12.6 g/dl (12.0-16.0); Immature Granulocytes # (auto) 0.03 K/uL (0.01-0.20); Immature Granulocytes % (auto) 0.5 %; Lymphocytes # (auto) 2.18 K/uL (1.20-3.40); Lymphocytes % (auto) 33.7 %; Mean Corpuscular Hemoglobin 27.8 pg (25.0-34.0); Mean Corpuscular Volume 84.3 fL (80.0-100.0); Mean Platelet Volume 8.9 fL (9.4-12.4); Monocytes # (auto) 0.52 K/uL (0.11-0.59); Neutrophils # (auto) 3.56 K/uL (1.40-6.50); Neutrophils % (auto) 55.1 %; Platelet Count 380 K/uL (130-400); RDW Coefficient of Variation 12.5 % (11.5-14.5); RDW Standard Deviation 37.5 fL (36.4-46.3); Red Blood Count 4.53 M/uL (4.20-5.40); White Blood Count 6.46 K/ul (4.8-10.8)
[2024-02-02 07:17] LABS: BUN Creatinine Ratio 11.7 (10-20); Calcium 8.2 mg/dl (8.6-10.3); Creatinine Clr Calc Pharmacy 132.1 ml/min; Est GFR (African American) 120.9 ml/min; Est GFR (Non-African American) 104.3 ml/min; Potassium 3.6 mmol/L (3.5-5.1)
[2024-02-02] MEDS: HYDROmorphone INJ 1 MG/ML SYRINGE IV PRN (07:36)
[2024-02-02] MEDS: buPROPion SR 100 MG TABCR PO SCH (07:43)
[2024-02-02] MEDS: FLUoxetine HCL 20 MG CAP PO SCH (07:44)
[2024-02-02] MEDS: ENOXAPARIN INJ 40 MG/0.4 ML SYR SQ SCH (07:44)
[2024-02-02] MEDS: TAMSULOSIN HCL 0.4 MG CAP PO SCH (07:44)
--- NOTE | 2024-02-02 08:37 | Urology Consultation ---
Date of Consultation February 02, 2024 Assessment & Plan (1) Kidney stone: (2) Obstructive uropathy: Plan 28-year-old female admitted for right flank pain and a 5 mm right proximal ureteral calculus. Discussed options for patient which we have medical expulsive therapy versus cystoscopy with right ureteral stent placement. Risk and benefits of stent placement were discussed. Due to pain, patient would prefer to have a procedure. She understands that she will need to come back for stone treatment in the future and that the stents can be fairly bothersome from a symptomatic standpoint To the OR for cystoscopy, right retrograde pyelogram right ureteral stent placement Consent obtained. Patient marked. Ancef ordered to OR Please keep n.p.o. until after surgery History of Present Illness Attending Physician: Leigh Rogers MD History of Present Illness 28-year-old female admitted for right flank pain and a 5 mm right proximal urete ral calculus. Afebrile with stable vitals. Labs show WBC of 6.46, creatinine of 0.77 and a negative UA. Independently reviewed his CT scan which shows a 5 mm right proximal ureteral calculus with mild hydronephrosis. She still reports fairly significant pain this morning. Allergies Allergy/AdvReac Type Severity Reaction Status Date / Time amoxicillin Allergy Intermediate Nausea/Vomi Verified 01/29/24 13:07 ting clavulanic acid Allergy Mild Mild Verified 01/29/24 13:07 vomiting & NO RASH. Penicillins Allergy Mild VOMITING Verified 01/29/24 13:07 Home Medications Medication Instructions Recorded Confirmed Type bupropion HCl 200 mg tablet,12 hr 400 mg PO QAM 08/03/22 02/01/24 History sustained-release ergocalciferol (vitamin D2) 1,250 1,250 mcg PO WK 08/03/22 02/01/24 History mcg (50,000 unit) capsule (Vitamin D2) fluoxetine 40 mg capsule 40 mg PO QAM 08/03/22 02/01/24 History albuterol sulfate 90 mcg/actuation 2 inh inhalation Q6H PRN shortness 11/24/23 02/01/24 Rx breath activated powder inhaler of breath or wheezing #1 ea cephalexin 500 mg capsule 500 mg PO BID 7 days #14 caps 01/29/24 02/01/24 Rx fluoxetine 20 mg capsule 20 mg PO DAILY 01/29/24 02/01/24 History oxycodone-acetaminophen 5 mg-325 1 tab PO Q8H PRN pain #14 tabs 01/29/24 02/01/24 Rx mg tablet (Percocet) rimegepant 75 mg disintegrating 75 mg PO DAILY PRN Migraine 01/29/24 02/01/24 History tablet (Nurtec ODT) Headache tamsulosin 0.4 mg capsule (Flomax) 0.4 mg PO DAILY #14 caps 01/29/24 02/01/24 Rx trazodone 50 mg tablet 50 mg PO HS 01/29/24 02/01/24 History Patient History Medical History (Updated 02/02/24 @ 02:53 by Israel Gann MD) Asthma Depression Anxiety Mood disorder Hyperbilirubinemia Headache Surgical History History of orthopedic surgery H/O adenoidectomy [place] teeth extracted Family History Other Migraines Social History Smoking Status: Never smoker Hx Alcohol Use: No Hx Substance Use: No Preferred Language: Bengali Communication Ability: Effective Shop Cooper Required: No Beliefs That Will Affect Care: None Current Living Situation: Family Current Living Situation Comment: Lives with a roomate. Other Information That Helps Us Care for You: No Feels Safe at Home: Yes Safety Concerns: Feels Safe At This Time Assistive Devices: None Review of Systems Review of Systems: 14 point review of systems negative outs meir of what is listed above in HPI Physical Exam Physical Exam: General: Alert and oriented, no acute distress HEENT: Normocephalic, mucous membranes moist Pulmonary: Nonlabored respirations Abdomen: Nondistended Extremities: Moves all 4 spontaneously Neuro: No gross deficits Skin: Warm, dry, no rashes noted Results & Data Vital Signs (Past 12 Hours) Vital Signs Temp Pulse Pulse Resp BP BP BP 02/02/24 07:42 36.3 C L 64 18 125/84 02/02/24 02:35 36.5 C 74 16 169/94 H 02/02/24 02:31 81 18 158/111 H 02/02/24 01:50 82 18 139/101 H 02/02/24 00:59 77 20 139/86 02/02/24 00:34 17 02/01/24 23:57 72 18 177/106 H 02/01/24 23:10 91 H 18 168/113 H 02/01/24 21:13 36.5 C 89 18 160/118 H Pulse Ox O2 Del Method 02/02/24 07:42 95 Room Air 02/02/24 02:35 95 Room Air 02/02/24 02:31 99 Room Air 02/02/24 01:50 100 Room Air 02/02/24 00:59 99 Room Air 02/02/24 00:34 96 Room Air 02/01/24 23:57 97 Room Air 02/01/24 23:10 99 Room Air 02/01/24 21:13 97 Room Air PG Care Time/CCT Total # of Minutes Spent Total Time Spent with Patient: Total time spent is greater than 50% in coordination of care (as documented) at patient's floor/unit and/or counseling patient: Coding Level of Care Code 70851 IN/OBS CONSULT LVL 3,45M Diagnoses Kidney stone N20.0 Obstructive uropathy N13.9
--- NOTE | 2024-02-02 08:45 | Electrocardiogram Report ---
Test Reason : Blood Pressure : / mmHG Vent. Rate : 072 BPM Atrial Rate : 072 BPM P-R Int : 188 ms QRS Dur : 092 ms QT Int : 404 ms P-R-T Axes : 076 083 074 degrees QTc Int : 442 ms Normal sinus rhythm Normal ECG When compared with ECG of 08-NOV-2014 21:13, Vent. rate has decreased BY 44 BPM Nonspecific T wave abnormality no longer present Confirmed by Chris Roesn ([id number]) on 02/02/2024 8:45:11 AM Referred By: REFERRED SELF Confirmed By:Chris Rosen
[2024-02-02] MEDS ORDERED: FLUoxetine HCL 20 MG CAP PO SCH (09:00)
[2024-02-02] MEDS ORDERED: ATROPINE SULFATE 0.1 MG/ML 10ML SYR IV PRN (10:45)
[2024-02-02] MEDS ORDERED: ePHEDrine sulfate 50 MG/ML AMP IV PRN (10:45)
[2024-02-02] MEDS ORDERED: HYDROmorphone INJ 2 MG/ML SYR/VIAL IV PRN (10:45)
[2024-02-02] MEDS ORDERED: ONDANSETRON INJ 2 MG/ML 2 ML VIAL IV PRN (10:45)
[2024-02-02] MEDS ORDERED: fentaNYL citrate PF 100 MCG/2 ML VIAL IV PRN (10:45)
--- NOTE | 2024-02-02 10:45 | Anesthesiology Consultation ---
Date of Service February 02, 2024 Assessment & Plan ASA ASA2 Proposed Anesthesia Anesthesia Type: General Risk / Benefits Reviewed With: PT / POA / Parent / Guardian, Accepts Plan and Informed Consent Obtained History Surgery Operation Date: 02/02/24 09:10 Proposed Procedures p Cystoscopy - Brad Lopez MD s Ureteral Stent Insertion/Removal - Brad Lopez MD s Cystoscopy Retrograde - Brad Lopez MD Height/Weight Height: 5 ft 2 in Weight: 118.841 kg Allergies Allergy/AdvReac Type Severity Reaction Status Date / Time amoxicillin Allergy Intermediate Nausea/Vomi Verified 01/29/24 13:07 ting clavulanic acid Allergy Mild Mild Verified 01/29/24 13:07 vomiting & NO RASH. Penicillins Allergy Mild VOMITING Verified 01/29/24 13:07 Medications Home Medications Medication Instructions Recorded Confirmed Last Taken bupropion HCl 200 mg tablet,12 hr 400 mg PO QAM 08/03/22 02/01/24 Unknown sustained-release ergocalciferol (vitamin D2) 1,250 1,250 mcg PO WK 08/03/22 02/01/24 Unknown mcg (50,000 unit) capsule (Vitamin D2) fluoxetine 40 mg capsule 40 mg PO QAM 08/03/22 02/01/24 Unknown albuterol sulfate 90 mcg/actuation 2 inh inhalation Q6H PRN shortness 11/24/23 02/01/24 Unknown breath activated powder inhaler of breath or wheezing #1 ea cephalexin 500 mg capsule 500 mg PO BID 7 days #14 caps 01/29/24 02/01/24 Unknown fluoxetine 20 mg capsule 20 mg PO DAILY 01/29/24 02/01/24 Unknown oxycodone-acetaminophen 5 mg-325 1 tab PO Q8H PRN pain #14 tabs 01/29/24 02/01/24 Unknown mg tablet (Percocet) rimegepant 75 mg disintegrating 75 mg PO DAILY PRN Migraine 01/29/24 02/01/24 Unknown tablet (Nurtec ODT) Headache tamsulosin 0.4 mg capsule (Flomax) 0.4 mg PO DAILY #14 caps 01/29/24 02/01/24 Unknown trazodone 50 mg tablet 50 mg PO HS 01/29/24 02/01/24 Unknown Active Medications Generic Name Dose Route Start Last Admin Trade Name Freq PRN Reason Stop Dose Admin Acetaminophen 650 mg 02/02/24 02:43 02/02/24 05:10 Acetaminophen 325 Mg Tab PO 03/03/24 02:42 650 mg QID PRN Administration pain/fever Bupropion HCl 400 mg 02/02/24 09:00 02/02/24 07:43 Bupropion Sr 100 Mg Tabcr PO 03/03/24 08:59 400 mg QAM TEGAN Administration Enoxaparin Sodium 40 mg 02/02/24 09:00 02/02/24 07:44 Enoxaparin Inj 40 Mg/0.4 Ml Syr SQ 03/03/24 08:59 40 mg QAM TEGAN Administration Fluoxetine HCl 60 mg 02/02/24 09:00 02/02/24 07:44 Fluoxetine Hcl 20 Mg Cap PO 03/03/24 08:59 60 mg QAM TEGAN Administration Hydromorphone HCl 1 mg 02/02/24 01:46 02/02/24 07:36 Hydromorphone Inj 1 Mg/Ml Syringe IV 02/16/24 01:45 1 mg Q4H PRN Administration Pain Sodium Chloride 1,000 mls @ 60 mls/hr 02/02/24 01:45 02/02/24 01:58 Nss IV 02/02/24 18:24 80 mls/hr .[id number] STA Administration Tamsulosin HCl 0.4 mg 02/02/24 09:00 02/02/24 07:44 Tamsulosin Hcl 0.4 Mg Cap PO 03/03/24 08:59 0.4 mg DAILY TEGAN Administration Past Medical History Medical History Asthma Depression Anxiety Mood disorder Hyperbilirubinemia Headache Exercise / Class Metabolic Activity II 4-5 Yardwork/Stairs/Walk up hill Past Family History Family History Other Migraines Past Surgical History Surgical History History of orthopedic surgery H/O adenoidectomy [facility] teeth extracted Past Anesthesia History No Hx of Anesthesia Complications and No Family Hx of Anesthesia Complications History of PONV No Hx of PONV and No Hx of Motion Sickness Social History Smoking Status: Never smoker Hx Alcohol Use: No Hx Substance Use: No substance use type: does not use Review of Systems denies fever/cough/ colds/ chest pain/ SOB/ NORMA denies NORMA Physical Exam Vital Signs Last Vital Signs Temp 36.3 C L 02/02/24 07:42 Pulse 64 02/02/24 07:42 Resp 18 02/02/24 07:42 BP 125/84 02/02/24 07:42 Pulse Ox 95 02/02/24 07:42 O2 Del Method Room Air 02/02/24 07:42 ENMT Mouth: no TMJ abnormality and no dentition abnormality Thyromental Distance: > or= 3.5 Finger Breadths Mallampati Class: II Neck neck extension not limited Respiratory normal respiratory effort; no respiratory distress Auscultation: lungs clear to auscultation bilaterally Cardiovascular Rate/Rhythm: regular rate and regular rhythm Neurologic moves all extremities Psychiatric Orientation: alert and oriented x 3 Testing Laboratory Results 02/02/24 06:17 02/02/24 06:17 Urine Color Yellow 02/01/24 23:18 Urine Appearance Clear (Clear) 02/01/24 23:18 Urine pH 6.0 (4.5-7.5) 02/01/24 23:18 Ur Specific [place] 1.008 (1.000-1.030) 02/01/24 23:18 Urine Protein Negative (Negative) 02/01/24 23:18 Urine Glucose (UA) Negative (Negative) 02/01/24 23:18 Urine Ketones Negative (Negative) 02/01/24 23:18 Urine Nitrite Negative (Negative) 02/01/24 23:18 Ur Leukocyte Esterase Negative (Negative) 02/01/24 23:18 02/01/24 23:18 POC Ur Test NEG
[2024-02-02] MEDS ORDERED: MIDAZOLAM HCL 1 MG/ML 2ML VIAL ONE (11:26)
[2024-02-02] MEDS ORDERED: LIDOCAINE 2% 2 ML VIAL/AMP(20MG/ML) INFIL ONE (11:27)
[2024-02-02] MEDS ORDERED: fentaNYL citrate PF 100 MCG/2 ML VIAL ONE (11:27)
[2024-02-02] MEDS ORDERED: PROPOFOL IV EMULSION 10 MG/ML 20 ML VIAL IV ONE (11:35)
[2024-02-02] MEDS ORDERED: ceFAZolin 330 MG/ML 1 GM VIAL ONE (11:35)
[2024-02-02] MEDS: ceFAZolin 3000MG 3,000 MG/72.5 ML BAG IV SCH (11:44)
--- NOTE | 2024-02-02 12:01 | Operative Report ---
PG Post Operative Report Pre & Post Diagnosis Operation Date: 02/02/24 09:10 Pre-Op Diagnosis: Obstructive uropathy Post-Op Diagnosis: Obstructive uropathy I identified the patient and participated in the time-out.: Yes Procedure Operation Date: 02/02/24 09:10 Actual Procedures p Cystoscopy(Right) - Brad Lopez MD s Ureteral Stent Insertion/Removal(Right) - Brad Lopez MD s Cystoscopy Retrograde With radiographic interpretation(Right) - Brad Lopez MD Surgeon Brad Lopez MD Assurance Engineer NA Estimated Blood Loss 0 Findings Consistent with Post-Op Diagnosis Specimens None Drains 6 [place] by 24 cm right ureteral stent Anesthesia Type MAC Complications none Indications 28-year-old female with a 5 mm right proximal ureteral calculus who opted for stent placement due to intractable pain. Description of Procedure After informed consent was obtained, the patient was transported operative suite. MAC anesthesia was induced. The patient was placed in dorsolithotomy position prepped and draped in a sterile fashion. They received preoperative Ancef for antibiotic prophylaxis. An appropriate surgical timeout was performed. A 22 [place] rigid scope was inserted per urethra into the bladder. Castillo cystoscopy revealed no stones or lesions. I turned my attention the right ureteral orifice and intubated this with a 5 [place] open-ended catheter. A right retrograde pyelogram was shot which showed mild hydronephrosis. A sensor wire was advanced into the kidney and confirmed fluoroscopically. A 6 [place] by 24 cm right ureteral stent was deployed with a good proximal coil in the renal pelvis and a good distal coil noted in the bladder, confirmed fluoroscopically and under direct visualization, respectively. The bladder was emptied and the scope was removed. This concluded the end of the case. All counts were correct at the end of the case. I was present, scrubbed, and actively participated for the entirety of the procedure. I attest to the content of the Intraoperative Record and any orders documented therein. Any exceptions are noted below.
[2024-02-02] MEDS: DIATRIZOATE MEGLUMINE 30% 100ML VIAL INSTIL ONE (12:02)
[2024-02-02] MEDS ORDERED: DEXAMETHASONE SOD INJ 4 MG/ML VIAL ONE (12:18)
[2024-02-02] MEDS ORDERED: KETOROLAC 30 MG/ML VIAL ONE (12:18)
[2024-02-02] MEDS ORDERED: ONDANSETRON INJ 2 MG/ML 2 ML VIAL ONE (12:18)
[2024-02-02] MEDS ORDERED: METOCLOPRAMIDE HCL INJ 5 MG/ML 2 ML VIAL ONE (12:18)
--- NOTE | 2024-02-02 12:20 | Anesthesiology Progress Note ---
Date of Service February 02, 2024 Anesthesia Post Procedure Vital Signs Vital Signs: Temp Pulse Pulse Resp BP BP BP 02/02/24 07:42 36.3 C L 64 18 125/84 02/02/24 07:30 02/02/24 02:35 36.5 C 74 16 169/94 H 02/02/24 02:31 81 18 158/111 H 02/02/24 01:50 82 18 139/101 H 02/02/24 00:59 77 20 139/86 02/02/24 00:34 17 02/01/24 23:57 72 18 177/106 H 02/01/24 23:10 91 H 18 168/113 H 02/01/24 21:13 36.5 C 89 18 160/118 H Pulse Ox O2 Del Method 02/02/24 07:42 95 Room Air 02/02/24 07:30 Room Air 02/02/24 02:35 95 Room Air 02/02/24 02:31 99 Room Air 02/02/24 01:50 100 Room Air 02/02/24 00:59 99 Room Air 02/02/24 00:34 96 Room Air 02/01/24 23:57 97 Room Air 02/01/24 23:10 99 Room Air 02/01/24 21:13 97 Room Air Pain Intensity Right Flank: Pain Intensity: 8 Transfer of Care Handoff Completed per policy Notes Mental Status: alert / awake / arousable and participated in evaluation Patient Amnestic to Procedure: Yes Nausea / Vomiting: adequately controlled Pain: adequately controlled Airway Patency, RR, SpO2: stable & adequate BP & HR: stable & adequate Hydration State: stable & adequate Anesthetic Complications: no major complications apparent and Pt Satisfied with anesthetic care
--- NOTE | 2024-02-02 14:56 | Communication Note ---
Date of Service: February 02, 2024 Patient was seen and examined at bedside. 28-year-old lady with PMH of hypothyroidism, migraine, urolithiasis, possible NORMA, anxiety/mood disorder presented with failure of outpatient therapy for ureteric stone management. She is being managed for the following: Obstructive uropathy: Right-sided kidney stone with note of hydronephrosis on recent imaging. Continue Flomax. Urology on board, status post cystoscopy/ureteral stent placement 02/01. Patient is still under the effect of anesthesia at bedside exam, appeared lethargic. Pt advised if she feels comfortable by later in the evening we can discuss Discharge, if not we can plan dc in AM. Situational hypertension: Likely secondary to above. Improved. Other chronic medical conditions: Continue with/resume home meds as and when able. DVT prophylaxis: Enoxaparin Full code
--- NOTE | 2024-02-02 20:14 | Fluoroscopy Report ---
FL retrograde includes kub CLINICAL HISTORY: RIGHT RETROGRADE, STENT TECHNIQUE: 2 views were obtained with the C-arm in the OR with the above procedure. Total fluoroscopy time was 7.9 seconds. Radiation dose was 4.05 mGy. Comparison: None available at the time of this dictation. FINDINGS/IMPRESSION: Intraoperative images were obtained of retrograde pyelogram and stent placement. Please correlate with intraoperative fluoroscopy and operative report. ACT 112: Negative or not required by law. Electronically signed by: Ronnell Caraballo M.D. 02/02/2024 8:13 PM
[2024-02-02] MEDS: traZODone HCL 50 MG TAB PO SCH (21:21)
[2024-02-03 06:37] LABS: Hematocrit (blood only) 40.5 % (37.0-47.0); Hemoglobin 13.6 g/dl (12.0-16.0); Mean Corpuscular Hemoglobin 27.9 pg (25.0-34.0); Mean Corpuscular Hgb Conc 33.6 g/dL (32.0-36.0); Mean Corpuscular Volume 83.2 fL (80.0-100.0); Mean Platelet Volume 9.1 fL (9.4-12.4); Platelet Count 420 K/uL (130-400); RDW Coefficient of Variation 12.2 % (11.5-14.5); RDW Standard Deviation 37.2 fL (36.4-46.3); Red Blood Count 4.87 M/uL (4.20-5.40); White Blood Count 8.87 K/ul (4.8-10.8)
[2024-02-03 06:52] LABS: BUN Creatinine Ratio 12.5 (10-20); Calcium 8.9 mg/dl (8.6-10.3); Creatinine Clr Calc Pharmacy 127.1 ml/min; Est GFR (African American) 115.5 ml/min; Est GFR (Non-African American) 99.6 ml/min
[2024-02-03] MEDS: oxyCODONE HCL IR 5 MG TAB (IMMEDIATE RELEASE) PO PRN (08:02)
--- NOTE | 2024-02-03 08:39 | Urology Progress Note ---
Date of Service February 03, 2024 Assessment & Plan (1) Kidney stone: (2) Obstructive uropathy: Plan 28-year-old female admitted for right flank pain and a 5 mm right proximal ureteral calculus. S/P cystoscopy right stent placement on 02/01. Patient tolerating the stent well -Stable for discharge home from urologic perspective -Medications sent to pharmacy -Follow up with urology on 02/10 -Urology to sign off Admission and Anticipated Discharge Date Admission Date: February 02, 2024 Subjective Acute issues overnight. Afebrile with stable vitals. White count is 8.8, creatinine is 0.8. Tolerating the stent well. Review of Systems Review of Systems: 14 point review of systems negative outs meir of what is listed above in HPI Physical Exam Physical Exam: General: Alert and oriented, no acute distress HEENT: Normocephalic, mucous membranes moist Pulmonary: Nonlabored respirations Abdomen: Nondistended Extremities: Moves all 4 spontaneously Neuro: No gross deficits Skin: Warm, dry, no rashes noted Results & Data Vital Signs (Past 12 Hours) Vital Signs Temp Pulse Resp BP Pulse Ox O2 Del Method 02/03/24 07:24 36.5 C 76 18 133/89 97 Room Air 02/03/24 03:55 36.5 C 80 16 123/77 95 Room Air 02/02/24 23:18 36.5 C 84 16 121/76 94 Room Air PG Care Time/CCT Total # of Minutes Spent Total Time Spent with Patient: Total time spent is greater than 50% in coordination of care (as documented) at patient's floor/unit and/or counseling patient: Coding Level of Care Code 98370 SUB INP/OBS CARE 2/35MIN Diagnoses Kidney stone N20.0 Obstructive uropathy N13.9
--- NOTE | 2024-02-03 12:01 | Discharge Summary ---
Date of Service February 03, 2024 Admission HPI Per Admitting Provider History obtained from patient and records. Medical history significant for hypothyroidism, migraine, urolithiasis, possible NORMA, anxiety/mood disorder. Last confinement 2016 under General Surgery service for cholecystitis status post laparoscopic cholecystectomy. 4 days ago patient experience achy right flank pain symptoms associated with nausea and vomiting. No fever, no chills, no hematuria. No prior episodes of kidney stones. Patient consulted ER. CT abdomen pelvis showed 5 mm proximal ureteric stone with associated hydronephrosis. Patient discharged on Flomax, Keflex, oxycodone prescriptions following ED provider discussion with Urology provider. Patient to wait for Urology appointment as per note. Worsening symptoms at home without stone passage despite compliance with new prescriptions. Transient worsening of migraine headache symptoms. Patient returned to ER. Initial SBP 170s, currently 130s. 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 Admission Exam Per Admitting Provider GENERAL: uncomfortable, pleasant, morbidly obese, no respiratory distress SKIN: Normal color, warm HEENT: [place] palpebral conjunctivae, no ptosis, dry buccal mucosa NECK : Supple, short neck, no tenderness CHEST : CTA, no tenderness HEART : RRR, no obvious murmurs ABDOMEN: Some distention, right flank tenderness EXTREMITIES : Minimal LE swelling, no LE tenderness, no other conspicuous deformities noted NEUROLOGIC : Coherent, no facial asymmetry, no other gross focality Principal Diagnosis Obstructive uropathy x right Discharge Exam GENERAL: Comfortably resting, pleasant, morbidly obese, no respiratory distress SKIN: Normal color, warm HEENT: [place] palpebral conjunctivae, no ptosis, dry buccal mucosa NECK : Supple, short neck, no tenderness CHEST : CTA, no tenderness HEART : RRR, no obvious murmurs ABDOMEN: Some distention,no right flank tenderness EXTREMITIES : Minimal LE swelling, no LE tenderness, no other conspicuous deformities noted NEUROLOGIC : Coherent, no facial asymmetry, no other gross focality Discharge Data Allergies Allergy/AdvReac Type Severity Reaction Status Date / Time amoxicillin Allergy Intermediate Nausea/Vomi Verified 01/29/24 13:07 ting clavulanic acid Allergy Mild Mild Verified 01/29/24 13:07 vomiting & NO RASH. Penicillins Allergy Mild VOMITING Verified 01/29/24 13:07 Consultations 02/02/24 01:17 ED Decision to Admit Stat 02/02/24 02:49 Consult Urology Routine Procedures Performed Operation Date: 02/02/24 09:10 Actual Procedures p Cystoscopy(Right) - Brad Lopez MD s Ureteral Stent Insertion/Removal(Right) - Brad Lopez MD s Cystoscopy Retrograde(Right) - Brad Lopez MD Ordered Studies 02/02/24 [place] retrograde includes kub Routine Hospital Course (1) Obstructive uropathy: Plan 28-year-old lady with PMH of hypothyroidism, migraine, urolithiasis, possible NORMA, anxiety/mood disorder presented with failure of outpatient therapy for ureteric stone management. She was managed for the following: Obstructive uropathy: Right-sided kidney stone with note of hydronephrosis on recent imaging. Continue Flomax. Urology on board, status post cystoscopy/ureteral stent placement 02/01. Patient reports feeling better, denies any pain. Patient to follow-up with urology upon discharge. Patient has been made aware. Situational hypertension: Likely secondary to above. Improved. Other chronic medical conditions: Continue with/resume home meds as and when able. DVT prophylaxis: Enoxaparin Full code Home Health Attestation I certify that this patient is under my care and that I, or a physicians social services assistant working with me, had a face to-face encounter that meets the home health [id number] encounter requirements with this patient. The encounter with the patient was in whole, or in part, for the following medical condition, which is the primary reason for home health care (list medical condition): I certify that, based on my findings, the following services are medically necessary home health services: My clinical findings support the need for the above services because: Further, I certify that my clinical findings support that this patient is homebound (i.e. absences from home require considerable and taxing effort and ar e for medical reasons or restorationist services or infrequently or of short duration when for other reasons) because: Certification for Home Health Services: Based on the above findings, I certify that this patient is confined to the home and needs intermittent long-term care, physical therapy and/or speech therapy or continues to need occupational therapy. The patient is under my care, and I have initiated the establishment of the plan of care. This patient will be followed by a physician who will periodically review the plan of care. Total Time Total Time Spent Total Time Spent (In Minutes): 35 Discharge Plan Discharge Items Patient Disposition: Home - Self-Care Reason For Visit: OBS UROPATHY Discharge Diagnosis: Obstructive uropathy status post cystoscopy/right ureteral stent placement 02/01 Activity: Resume your previous activity Non-emergency contact: Primary Care Provider Call non-emergency contact if: you have any medication questions and your symptoms worsen Follow-up/Referrals: Sharon Cooper, [Primary Care Provider] - Diet: Regular Addtl Attending Provider Instructions: Take Tylenol and ibuprofen as needed for pain. Oxycodone for breakthrough pain. Continue taking Flomax as this can help with stent discomfort. Oxybutynin as needed, however this can cause dry mouth, constipation and difficulty urinating so only use when necessary. If you are not having bother from the stent, you do not need to take any occasions. MiraLAX [id number] as needed for constipation. It is normal to have blood in his urine while the stent is in place. The more activity perform, the bloody or your urine will be. This is okay as long as you are able to urinate. You will be called regarding a follow-up appointment to determine stone treatment. Call the office earlier with fevers or uncontrolled pain. Addtl [employer] Provider Instructions: Follow-up with your primary care physician within a week time and likely will need labs CBC/CMP/magnesium/phosphorus. Pending Studies at Discharge: No Stand-Alone Forms: My [facility] UpDown, Smoking Cessation Medications and DC Order Prescriptions: New oxybutynin chloride 5 mg tablet extended release 24hr 5 mg PO DAILY Qty: 30 0RF Continued albuterol sulfate 90 mcg/actuation aerosol powdr breath activated 2 inh inhalation Q6H PRN (Reason: shortness of breath or wheezing) Qty: 1 0RF Rx Instructions: administer with spacer fluoxetine 40 mg capsule 40 mg PO QAM ergocalciferol (vitamin D2) [Vitamin D2] 1,250 mcg (50,000 unit) capsule 1,250 mcg PO WK Rx Instructions: Sun bupropion HCl 200 mg tablet sustained-release 12 hr 400 mg PO QAM trazodone 50 mg tablet 50 mg PO HS fluoxetine 20 mg capsule 20 mg PO DAILY Nurtec ODT 75 mg tablet,disintegrating 75 mg PO DAILY PRN (Reason: Migraine Headache) oxycodone-acetaminophen [Percocet] 5-325 mg tablet 1 tab PO Q8H PRN (Reason: pain) Qty: 14 0RF tamsulosin [Flomax] 0.4 mg capsule 0.4 mg PO DAILY Qty: 14 0RF Discontinued cephalexin 500 mg capsule 500 mg PO BID 7 Days Qty: 14 0RF Discharge Orders: Discharge Order (Routine); Ordered 02/03/24 Ordered By: Leigh Rogers Admission Data Admit Date/Time: 02/02/24 01:45 Attending Provider: Leigh Rogers Admit Provider: Israel Gann Primary Care Provider: Sharon Cooper Other Providers: Israel Gann; Ayaz Bridges; Lon Lemus; Vipin Walden; Suzy Gorman; Tyrone Mcgowan; Jenifer Mancera; Katrina Juarez; Mahendra Brand; Lexi Bassett; Kurt Tse; Abdon Sanchez; Brad Lopez
== END 2024-02-03 13:23 | disposition home or self-care (01) ==
LOC: 3W 21:09 → ED 21:09 → 3W 02-02 02:31